=== PATIENT | male | born 1980 | race Two or more races ===

== ENCOUNTER 2017-10-15 10:41 | Inpatient (IN) | payer OTHER ==
--- NOTE | 2017-10-15 11:02 | ED ---
General Adult HPI - General Chief complaint: Shortness of Breath Stated complaint: collapsed lung-sent by Dr. Bueno Time Seen by Provider: 10/15/17 10:50 Source: patient, RN notes reviewed, old records reviewed Mode of arrival: ambulatory Limitations: no limitations - History of Present Illness Initial comments: 37-year-old male sent from the pond scaler's office with right-sided pneumothorax. Patient is accompanied by his mother who is able to help with the history as Thai is not the patient's first language. She states that he had an outpatient ultrasound by his primary care physician which showed concern for pneumothorax, there was chest x-ray obtained with primary care physician that did confirm pneumothorax and the patient was sent to [facility] for evaluation. Patient has had some mild intermittent dyspnea over the past several months. No significant shortness of breath at the time my evaluation. No chest pain. No abdominal pain. Patient has a remote history of tobacco use , is currently not smoking. Denies cough. Denies fever. - Related Data Home Medications Medication Instructions Recorded Confirmed Ibuprofen [Advil] 200 mg PO Q8HR PRN 10/15/17 10/15/17 Allergies Allergy/AdvReac Type Severity Reaction Status Date / Time No Known Allergies Allergy Unverified 10/15/17 11:12 Review of Systems ROS Statement: Those systems with pertinent positive or pertinent negative responses have been documented in the HPI. ROS Other: All systems not noted in ROS Statement are negative. Past Medical History Past Medical History: No Reported History History of Any Multi-Drug Resistant Organisms: None Reported Past Surgical History: Orthopedic Surgery Additional Past Surgical History / Comment(s): lt foot Past Psychological History: No Psychological Hx Reported Smoking Status: Former smoker Past Alcohol Use History: Occasional Past Drug Use History: None Reported General Exam Limitations: no limitations General appearance: alert, in no apparent distress Head exam: Present: atraumatic, normocephalic Eye exam: Present: normal appearance, PERRL ENT exam: Present: normal exam, normal oropharynx Neck exam: Present: normal inspection. Absent: tenderness, meningismus Respiratory exam: Present: decreased breath sounds (Decreased breath sounds on the right). Absent: respiratory distress Cardiovascular Exam: Present: regular rate, normal rhythm. Absent: JVD GI/Abdominal exam: Present: soft. Absent: distended, tenderness Extremities exam: Present: normal inspection, normal capillary refill. Absent: pedal edema Back exam: Present: normal inspection, full ROM Neurological exam: Present: alert, oriented X3, CN II-XII intact. Absent: motor sensory deficit Psychiatric exam: Present: normal affect, normal mood Skin exam: Present: warm, dry, intact Course Vital Signs 10/15/17 10/15/17 10:44 11:54 Temperature 98.0 F Pulse Rate 93 69 Respiratory 20 18 Rate Blood Pressure 137/82 128/80 O2 Sat by Pulse 99 100 Oximetry - Reevaluation(s) Reevaluation #1: 10/15/17 11:17 Case discussed with Chiara physician congressional assistant for Dr. Calhoun. EKG Findings - EKG Comments: EKG Findings:: EKG: Normal sinus rhythm, incomplete right bundle branch block, rate of 93, NH interval 160, QRS duration 106, QTC [address] segment elevation Medical Decision Making - Medical Decision Making 37-year-old male sent from pulmonologists office with spontaneous pneumothorax. This is a 30-40% pneumothorax on single view chest which is obtained. Dr. Calhoun is contacted and is able to evaluate patient emergency department including placement of right-sided for event. Patient will be observed. All labs are reviewed and are unremarkable. Dr. Rodney will accept admission - Lab Data Result diagrams: 10/15/17 11:13 10/15/17 11:13 Lab Results 10/15/17 10/15/17 10/15/17 Range/Units 11:13 11:13 11:13 WBC 6.2 (3.8-10.6) k/uL RBC 6.01 H (4.30-5.90) m/uL Hgb 16.5 (13.0-17.5) gm/dL Hct 48.9 (39.0-53.0) % MCV 81.3 (80.0-100.0) fL MCH 27.5 (25.0-35.0) pg MCHC 33.8 (31.0-37.0) g/dL RDW 13.4 (11.5-15.5) % Plt Count 200 (150-450) k/uL Neutrophils % 60 % Lymphocytes % 26 % Monocytes % 8 % Eosinophils % 2 % Basophils % 1 % Neutrophils # 3.7 (1.3-7.7) k/uL Lymphocytes # 1.6 (1.0-4.8) k/uL Monocytes # 0.5 (0-1.0) k/uL Eosinophils # 0.1 (0-0.7) k/uL Basophils # 0.0 (0-0.2) k/uL PT (9.0-12.0) sec INR (<1.2) APTT (22.0-30.0) sec Sodium 145 (137-145) mmol/L Potassium 4.3 (3.5-5.1) mmol/L Chloride 104 (98-107) mmol/L Carbon Dioxide 27 (22-30) mmol/L Anion Gap 14 mmol/L BUN 17 (9-20) mg/dL Creatinine 0.72 (0.66-1.25) mg/dL Est GFR (CKD-EPI)AfAm >90 (>60 ml/min/1.73 sqM) Est GFR (CKD-EPI)NonAf >90 (>60 ml/min/1.73 sqM) Glucose 91 (74-99) mg/dL Calcium 9.4 (8.4-10.2) mg/dL Magnesium 1.9 (1.6-2.3) mg/dL Total Bilirubin 0.7 (0.2-1.3) mg/dL AST 17 (17-59) U/L ALT 38 (21-72) U/L Alkaline Phosphatase 52 (38-126) U/L CK-MB (CK-2) 1.1 (0.0-2.4) ng/mL Troponin I <0.012 (0.000-0.034) ng/mL Total Protein 7.0 (6.3-8.2) g/dL Albumin 4.5 (3.5-5.0) g/dL 10/15/17 Range/Units 11:13 WBC (3.8-10.6) k/uL RBC (4.30-5.90) m/uL Hgb (13.0-17.5) gm/dL Hct (39.0-53.0) % MCV (80.0-100.0) fL MCH (25.0-35.0) pg MCHC (31.0-37.0) g/dL RDW (11.5-15.5) % Plt Count (150-450) k/uL Neutrophils % % Lymphocytes % % Monocytes % % Eosinophils % % Basophils % % Neutrophils # (1.3-7.7) k/uL Lymphocytes # (1.0-4.8) k/uL Monocytes # (0-1.0) k/uL Eosinophils # (0-0.7) k/uL Basophils # (0-0.2) k/uL PT 10.4 (9.0-12.0) sec INR 1.1 (<1.2) APTT 25.8 (22.0-30.0) sec Sodium (137-145) mmol/L Potassium (3.5-5.1) mmol/L Chloride (98-107) mmol/L Carbon Dioxide (22-30) mmol/L Anion Gap mmol/L BUN (9-20) mg/dL Creatinine (0.66-1.25) mg/dL Est GFR (CKD-EPI)AfAm (>60 ml/min/1.73 sqM) Est GFR (CKD-EPI)NonAf (>60 ml/min/1.73 sqM) Glucose (74-99) mg/dL Calcium (8.4-10.2) mg/dL Magnesium (1.6-2.3) mg/dL Total Bilirubin (0.2-1.3) mg/dL AST (17-59) U/L ALT (21-72) U/L Alkaline Phosphatase (38-126) U/L CK-MB (CK-2) (0.0-2.4) ng/mL Troponin I (0.000-0.034) ng/mL Total Protein (6.3-8.2) g/dL Albumin (3.5-5.0) g/dL Critical Care Time Critical Care Time: Yes Total Critical Care Time: 35 Disposition Clinical Impression: Spontaneous pneumothorax Disposition: ADMITTED IP TO THIS HOSP Condition: Stable Is patient prescribed a controlled substance at d/c from ED?: No Referrals: Prakash Aceves MD [Primary Care Provider] - 1-2 days Decision to Admit Reason: Admit from EC Decision Date: 10/15/17 Decision Time: 12:34
--- NOTE | 2017-10-15 11:40 | XR ---
EXAMINATION TYPE: XR chest 1V portable DATE OF EXAM: 10/15/2017 COMPARISON: NONE HISTORY: Chest pain TECHNIQUE: Single frontal view of the chest is obtained. FINDINGS: Large right-sided pneumothorax estimated at approximately 40-50%. The cardiac silhouette size is within normal limits. No evidence for mediastinal shift at this time . The osseous structures are intact. IMPRESSION: 1. Large right-sided pneumothorax estimated at approximately 40-50%. ER was notified at 11:36 AM 10/15/2017
[2017-10-15 11:46] LABS: Basophils % (A) 1 %; Eosinophils # (A) 0.1 k/uL (0-0.7); Eosinophils % (A) 2 %; HCT 48.9 % (39.0-53.0); HGB 16.5 gm/dL (13.0-17.5); Lymphocytes # (A) 1.6 k/uL (1.0-4.8); Lymphocytes % (A) 26 %; MCH 27.5 pg (25.0-35.0); MCHC 33.8 g/dL (31.0-37.0); MCV 81.3 fL (80.0-100.0); Mean Platelet Volume 7.2; Monocytes # (A) 0.5 k/uL (0-1.0); Monocytes % (A) 8 %; Neutrophils # (A) 3.7 k/uL (1.3-7.7); Neutrophils % (A) 60 %; Platelet Count 200 k/uL (150-450); RBC 6.01 m/uL (4.30-5.90); RDW 13.4 % (11.5-15.5); WBC 6.2 k/uL (3.8-10.6)
--- NOTE | 2017-10-15 11:46 | P.CNPUL ---
History of Present Illness Consult date: 10/15/17 Reason for consult: pneumothorax History of present illness: A 37-year-old male patient, a ex-smoker, who was referred from our office for a right-sided pneumothorax. The patient was having shortness of breath for a few weeks. He was also having some vague abdominal pain. The patient was referred for an ultrasound of the abdomen, on and off and as part of further investigation ultrasound of the abdomen was done which revealed no specific abnormalities. At the same time the ultrasound and his lower part of the right chest revealed a pneumothorax. This was followed up by a chest x-ray that showed a 30-40% pneumothorax on the right. The patient is hemodynamically stable. The patient is currently resting comfortably in the emergency department. No trauma to the chest. No hemoptysis. No pleurisy. Pulse ox is 95-96% on 2 L of oxygen by nasal cannula. Labs are within normal limits. Review of Systems Constitutional: Denies chills, Denies fever Eyes: denies blurred vision, denies bulging eye, denies decreased vision Ears: deny: decreased hearing, ear discharge, earache, tinnitus Ears, nose, mouth and throat: Denies headache, Denies sore throat Cardiovascular: Denies chest pain, Denies shortness of breath Respiratory: Reports dyspnea Gastrointestinal: Denies abdominal pain, Denies diarrhea, Denies nausea, Denies vomiting Genitourinary: Reports as per HPI Musculoskeletal: Denies myalgias Musculoskeletal: absent: ankle pain, ankle stiffness, ankle swelling Integumentary: Denies pruritus, Denies rash Neurological: Denies numbness, Denies weakness Psychiatric: Denies anxiety, Denies depression Endocrine: Reports as per HPI Hematologic/Lymphatic: Reports as per HPI Past Medical History Past Medical History: No Reported History Additional Past Medical History / Comment(s): Neurofibromatosis, history of hemangioma, chronic neck pain, history of smoking History of Any Multi-Drug Resistant Organisms: None Reported Past Surgical History: Orthopedic Surgery Additional Past Surgical History / Comment(s): lt foot Past Psychological History: No Psychological Hx Reported Smoking Status: Former smoker Past Alcohol Use History: Occasional Past Drug Use History: None Reported Medications and Allergies Home Medications Medication Instructions Recorded Confirmed Type Ibuprofen [Advil] 200 mg PO Q8HR PRN 10/15/17 10/15/17 History Allergies Allergy/AdvReac Type Severity Reaction Status Date / Time No Known Allergies Allergy Unverified 10/15/17 11:12 Physical Exam Vitals: Vital Signs Temp Pulse Resp BP Pulse Ox 10/15/17 10:44 98.0 F 93 20 137/82 99 Intake and Output 10/14/17 10/15/17 10/15/17 22:59 06:59 14:59 Other: Weight 77.111 kg Gen. appearance, comfortable likely distress Head exam was generally normal. There was no scleral icterus or corneal arcus. Mucous membranes were moist. Neck was supple and without jugular venous distension, thyromegaly, or carotid bruits. Carotids were easily palpable bilaterally. There was no adenopathy. Lungs sounds are markedly diminished on the right compared to the left Cardiac exam revealed the PMI to be normally situated and sized. The rhythm was regular and no extrasystoles were noted during several minutes of auscultation. The first and second heart sounds were normal and physiologic splitting of the second heart sound was noted. There were no murmurs, rubs, clicks, or gallops. Abdomen abdomen Abdominal exam revealed normal bowel sounds. The abdomen was soft, non-tender, and without masses, organomegaly, or appreciable enlargement of the abdominal aorta. Examination of the extremities revealed easily palpable radial, femoral and pedal pulses. There was no cyanosis, clubbing or edema. Examination of the skin revealed no evidence of significant rashes, suspicious appearing nevi or other concerning lesions. Neurologically the patient is awake and alert and there is no focal neurological deficits Results - Diagnostic Findings Chest x-ray: image reviewed Assessment and Plan Plan: Assessment 1 primary spontaneous pneumothorax, right-sided [place] estimated to be around 40-50% 2 shortness of breath secondary to above 3 neurofibromatosis 4 history of smoking Plan Would proceed with a Thoravent insertion on the right. We'll admit the patient to the hospital and obtain follow-up chest x-rays. We'll continue to follow. We'll check alpha-1 antitrypsin levels. May need a CAT scan of the chest later stage special with his previous history of neurofibromatosis.
[2017-10-15 11:58] LABS: ALT 38 U/L (21-72); AST 17 U/L (17-59); Albumin 4.5 g/dL (3.5-5.0); Alkaline Phosphatase 52 U/L (38-126); Anion Gap 14 mmol/L; Blood Urea Nitrogen 17 mg/dL (9-20); Calcium 9.4 mg/dL (8.4-10.2); Carbon Dioxide 27 mmol/L (22-30); Chloride 104 mmol/L (98-107); Glucose 91 mg/dL (74-99); Magnesium 1.9 mg/dL (1.6-2.3); Potassium 4.3 mmol/L (3.5-5.1); Sodium 145 mmol/L (137-145); Total Bilirubin 0.7 mg/dL (0.2-1.3)
[2017-10-15 12:03] LABS: INR 1.1 (<1.2); Partial Thromboplastin Time 25.8 sec (22.0-30.0); Prothrombin Time 10.4 sec (9.0-12.0)
--- NOTE | 2017-10-15 12:06 | P.PCN ---
Date of Procedure: 10/15/17 Preoperative Diagnosis: Right sided pneumothorax Postoperative Diagnosis: Right-sided pneumothorax Procedure(s) Performed: Thoravent insertion Anesthesia: local Surgeon: Alicia Calhoun Occupational Therapy Assistant #1: Chiara Srinivasan Estimated Blood Loss (ml): 0 Pathology: none sent Condition: stable Disposition: floor Operative Findings: The procedure including the potential complicated was extended to the patient at length. A timeout was obtained. Consent was signed. The skin was infiltrated with 1% lidocaine at location of the anterior second intercostal space. The skin was incised with a scalpel. Following that a 13-Eth[place]ian Thoravent catheter was secured in place and it was inserted without any difficulties or complications. The right-sided pneumothorax was deflated. The appropriate dressing was applied. The vent was connected to a Pleur-evac. A chest x-ray showed adequate positioning of the tube and there were no complications. The right lung is expanded. The patient will be admitted to the medical floor.
[2017-10-15 12:23] LABS: Creatine Kinase MB 1.1 ng/mL (0.0-2.4); Troponin I <0.012 ng/mL (0.000-0.034)
--- NOTE | 2017-10-15 12:28 | XR ---
EXAMINATION TYPE: XR chest 1V portable DATE OF EXAM: 10/15/2017 COMPARISON: 10/06/2017 HISTORY: Chest pain TECHNIQUE: Single frontal view of the chest is obtained. FINDINGS: Interval placement of right-sided pleural catheter. There is a small residual right apical pneumothor ax. The cardiac silhouette size is within normal limits. The osseous structures are intact. IMPRESSION: 1. Significant diminution in size of right-sided pneumothorax. Small less than 10% right apical pneum othorax persists. Right-sided pleural catheter has been placed.
[2017-10-15] MEDS ORDERED: NALOXONE 0.4 MG/ML 1 ML VIAL IV PRN (12:31)
[2017-10-15 12:49] LABS: Creatine Kinase 84 U/L (55-170)
[2017-10-15] MEDS ORDERED: ACETAMINOPHEN TAB 325 MG TAB PO PRN (19:18)
[2017-10-15] MEDS ORDERED: MELATONIN 3 MG TABLET PO PRN (19:18)
[2017-10-15] MEDS ORDERED: ONDANSETRON 4 MG/2 ML VIAL IVP PRN (19:18)
[2017-10-15] MEDS ORDERED: ALPRAZolam 0.25 MG TAB PO PRN (19:18)
[2017-10-15] MEDS ORDERED: CALCIUM CARBONATE 500 MG CHEWABLE PO PRN (19:18)
[2017-10-15] MEDS: NAPROXEN 250 MG TAB PO SCH ×2 (21:02→21:49)
[2017-10-15] MEDS: ENOXAPARIN 40 MG/0.4 ML SYRINGE SQ SCH (21:03)
--- NOTE | 2017-10-15 21:27 | HP ---
HISTORY AND PHYSICAL DATE OF ADMISSION AND DATE OF SERVICE: 10/15/2017 PRESENTING COMPLAINT: Short of breath. HISTORY OF PRESENTING COMPLAINT: This is a 37-year-old patient from [place], was difficult to understand very well, but states he had been short of breath for some time and he went to get an ultrasound of the abdomen because some abdominal symptoms, nonspecific, and that showed up showing a pneumothorax and a chest x-ray was done, showed about 30%-40% pneumothorax. Thora- Vent was placed by Dr. Calhoun. Breathing feels a bit better. No cough. No sputum. Patient is an ex-smoker, stopped smoking 9 months ago. Denies any fever or chills. Appetite is fair. Denies any other medical history. REVIEW OF SYSTEMS: CONSTITUTIONAL: None. HEENT: None. RESPIRATORY: As above. CARDIOVASCULAR: None. GASTROINTESTINAL: None. GENITOURINARY: None. MUSCULOSKELETAL: None. DERMATOLOGICAL: None. HEMATOLOGIC: None. LYMPHATIC: None. PSYCHIATRY: None. NEUROLOGICAL: None. PAST MEDICAL HISTORY: None. 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 SOCIAL HISTORY: Lives at his [id number] place. Did stop smoking about 9 years ago. Alcohol occasionally. Smoked for about 18 years. FAMILY HISTORY: Father had stomach bleeding. HOME MEDICATIONS: Advil p.r.n. 200 mg. ALLERGIES: None. EXAMINATION: Temperature 97, pulse 67, respirations 16, blood pressure 132/82, pulse ox 100% on room air. GENERAL APPEARANCE: Average build, lying in bed, awake. EYES: Pupils equal. Conjunctivae normal. HEENT: External nose and ears normal. Oral cavity normal. NECK: JVD not raised. Mass not palpable. RESPIRATORY: Effort normal. LUNGS: Slightly decreased breath sounds on the right side. CARDIOVASCULAR: First and second sounds normal. No edema. ABDOMEN: Soft, nontender. Liver and spleen not palpable. LYMPHATIC: No lymph node palpable in neck or axillae. PSYCHIATRY: Alert and oriented x3. Mood and affect normal. CHEST WALL: Thora-Vent anteriorly connected to a suction. MUSCULOSKELETAL: The patient has a healing scar on the left leg. INVESTIGATION: Initial chest x-ray did show 30%-40% pneumothorax. White count 6.2, hemoglobin 16.5. ASSESSMENT: 1. Spontaneous pneumothorax 30%-40%, symptomatic in an ex-smoker. 2. Placement of Thora-Vent. PLAN: The patient will be given NSAIDs for pain control, Lovenox for DVT prophylaxis. Care was discussed with the patient. Dr. Calhoun from pulmonary did put Thora-Vent in place. JORJE / RAIZAN: [id number] /
[2017-10-16] MEDS: NAPROXEN 250 MG TAB PO SCH ×3 (08:29→20:51)
[2017-10-16] MEDS: ENOXAPARIN 40 MG/0.4 ML SYRINGE SQ SCH (08:31)
--- NOTE | 2017-10-16 10:21 | XR ---
EXAMINATION TYPE: XR chest 1V DATE OF EXAM: 10/16/2017 COMPARISON: 10/15/2017 INDICATION: Pneumothorax TECHNIQUE: Single frontal view of the chest is obtained. FINDINGS: The heart size is normal. The pulmonary vasculature is normal. The lungs are clear. Small right apical pneumothorax estimated at 5% may remain present. This is diminished with some expa nsion from the prior study. IMPRESSION: 1. Diminishing right apical pneumothorax
--- NOTE | 2017-10-16 13:44 | P.PN ---
Subjective Progress Note Date: 10/16/17 Principal diagnosis: Right-sided primary spontaneous pneumothorax of 40-50%, status post thora-vent insertion A 37-year-old male patient, a ex-smoker, who was referred from our office for a right-sided pneumothorax. The patient was having shortness of breath for a few weeks. He was also having some vague abdominal pain. The patient was referred for an ultrasound of the abdomen, on and off and as part of further investigation ultrasound of the abdomen was done which revealed no specific abnormalities. At the same time the ultrasound and his lower part of the right chest revealed a pneumothorax. This was followed up by a chest x-ray that showed a 30-40% pneumothorax on the right. The patient is hemodynamically stable. The patient is currently resting comfortably in the emergency department. No trauma to the chest. No hemoptysis. No pleurisy. Pulse ox is 95-96% on 2 L of oxygen by nasal cannula. Labs are within normal limits. On 10/16/2017 patient seen in follow-up. This morning's chest x-ray has been reviewed with Dr. Calhoun and shows diminishing right apical pneumothorax, with residual small right apical pneumo estimated at 5%. Right-sided Thora- Vent has been hooked up to a Pleur-evac at continuous low wall suction, and there is no air leak noted today. The Pleur-evac has been disconnected, and the cap been applied to the Thora vent, repeat chest x-ray will be obtained tomorrow. Otherwise patient is calm and comfortable, denies any distress, patient can't get up and ambulate, will provide him with an incentive spirometry ,I'll signs are stable, lung sounds are clear, and somewhat diminished on the right, there is no entry noted. Objective - Vital Signs Vital signs: Vital Signs Temp 97.2 F L 10/16/17 05:52 Pulse 63 10/16/17 05:52 Resp 18 10/16/17 05:52 BP 112/70 10/16/17 05:52 Pulse Ox 100 10/16/17 05:52 Intake & Output 10/15/17 10/16/17 10/16/17 18:59 06:59 18:59 Intake Total 350 Balance 350 Weight 77.111 kg 77.111 kg Intake: Oral 350 Other: # Voids 1 - Exam Gen. appearance, comfortable likely distress Head exam was generally normal. There was no scleral icterus or corneal arcus. Mucous membranes were moist. Neck was supple and without jugular venous distension, thyromegaly, or carotid bruits. Carotids were easily palpable bilaterally. There was no adenopathy. Lungs sounds are markedly diminished on the right compared to the left, increased air in entry noted on the right compared to yesterday's exam. Right upper chest for a thoravent is present, and is connected to a Pleur-evac at a low continuous wall suction. The Pleur-evac has been discontinued, and the Thoravent has been capped, creating a water seal Cardiac exam revealed the PMI to be normally situated and sized. The rhythm was regular and no extrasystoles were noted during several minutes of auscultation. The first and second heart sounds were normal and physiologic splitting of the second heart sound was noted. There were no murmurs, rubs, clicks, or gallops. Abdomen abdomen Abdominal exam revealed normal bowel sounds. The abdomen was soft, non-tender, and without masses, organomegaly, or appreciable enlargement of the abdominal aorta. Examination of the extremities revealed easily palpable radial, femoral and pedal pulses. There was no cyanosis, clubbing or edema. Examination of the skin revealed no evidence of significant rashes, suspicious appearing nevi or other concerning lesions. Neurologically the patient is awake and alert and there is no focal neurological deficits - Labs CBC & Chem 7: 10/15/17 11:13 10/15/17 11:13 Assessment and Plan Plan: Assessment: 1 primary spontaneous pneumothorax, right-sided [place] estimated to be around 40-50% , status post right Thoravent insertion, with successful reexpansion of the right lung with only residual apical pneumothorax of around 50% on today's chest x-ray on 10/16/2017 2 shortness of breath secondary to above 3 neurofibromatosis 4 history of smoking Plan: Pleural VAC and wall suction has been discontinued, chest x-ray shows diminishing pneumothorax, of around 5% residual in the right apex. The thoravent has been capped, and it is to water seal at this time. Patient can get up and ambulate, incentive spirometry to the bedside, encourage pulmonary toileting, will repeat chest x-ray tomorrow. I performed a history & physical examination of the patient and discussed their management with my nurse practitioner, Shanita Lu. I reviewed the nurse practitioner's note and agree with the documented findings and plan of care. Lung sounds are positive for clear lung sounds, slightly diminished on the right. The findings and the impression was discussed with the patient. I attest to the documentation by the nurse practitioner. Time with Patient: Less than 30
[2017-10-16] MEDS: CHOLECALCIFEROL 1,000 UNIT TAB PO SCH (14:11)
--- NOTE | 2017-10-17 05:25 | PN ---
PROGRESS NOTE DATE OF SERVICE: 10/16/2017 PRESENTING COMPLAINT: Pneumothorax. INTERVAL HISTORY: Patient with spontaneous pneumothorax on the right side with a Thora-Vent in place, has been capped off. Patient now , breathing stable. Tolerating a diet. REVIEW OF SYSTEMS: Review of systems done for constitutional, cardiovascular, GI, pulmonary; relevant findings as above. CURRENT MEDICATIONS: Current medications are reviewed. PHYSICAL EXAMINATION: On examination, temperature 97.3, pulse 76, respirations 17, blood pressure 118/67, pulse ox 99% on 2 L. GENERAL APPEARANCE: Sitting up, comfortable, EYES: Pupil equal. Conjunctivae normal. HENT: External appearance of the nose and ears normal. Oral cavity normal. NECK: JVD not raised. Mass not palpable. RESPIRATORY: Effort normal. LUNGS: Slightly decreased breath sounds. CARDIOVASCULAR: First and second normal. No edema. ABDOMEN: Soft, nontender. Liver and spleen not palpable. PSYCHIATRY: Alert and oriented x3. Mood and affect normal. Right chest wall has got a Thora-Vent in place, now capped off. INVESTIGATIONS: No blood work from today. Chest x-ray shows only 5% remaining pneumothorax. ASSESSMENT: 1. Spontaneous pneumothorax down from 30% to 40% down to 5%. 2. Thora-Vent in place. PLAN: Patient doing much better, up and about. If chest x-ray remains stable, should be able to get discharged. MMODL / IJN: [id number] /
[2017-10-17 06:21] VITALS: PULSE 76; RESP 16
--- NOTE | 2017-10-17 06:29 | XR ---
EXAM: XR Chest, 1 View CLINICAL HISTORY: Prior on synapse, increased pain post thoravent placement for pneumothorax TECHNIQUE: Frontal view of the chest. COMPARISON: 10/15/2017 FINDINGS: Lungs: Lungs are clear. Pleural space: Likely very small residual apical pneumothorax noted, decreasing in size. Heart: Cardiac silhouette size is normal. Mediastinum: Unremarkable. Bones/joints: Unremarkable. Tubes, lines and devices: Right-sided pleural catheter is again noted. IMPRESSION: 1. Decreasing size of the right pneumothorax, with likely small residual apical component.
[2017-10-17] MEDS: NAPROXEN 250 MG TAB PO SCH ×2 (08:35→16:13)
[2017-10-17] MEDS: ENOXAPARIN 40 MG/0.4 ML SYRINGE SQ SCH (08:36)
[2017-10-17] MEDS: CHOLECALCIFEROL 1,000 UNIT TAB PO SCH (11:46)
--- NOTE | 2017-10-17 13:25 | P.PN ---
Subjective Progress Note Date: 10/17/17 Principal diagnosis: Right-sided primary spontaneous pneumothorax of 40-50%, status post thora-vent insertion A 37-year-old male patient, a ex-smoker, who was referred from our office for a right-sided pneumothorax. The patient was having shortness of breath for a few weeks. He was also having some vague abdominal pain. The patient was referred for an ultrasound of the abdomen, on and off and as part of further investigation ultrasound of the abdomen was done which revealed no specific abnormalities. At the same time the ultrasound and his lower part of the right chest revealed a pneumothorax. This was followed up by a chest x-ray that showed a 30-40% pneumothorax on the right. The patient is hemodynamically stable. The patient is currently resting comfortably in the emergency department. No trauma to the chest. No hemoptysis. No pleurisy. Pulse ox is 95-96% on 2 L of oxygen by nasal cannula. Labs are within normal limits. On 10/16/2017 patient seen in follow-up. This morning's chest x-ray has been reviewed with Dr. Calhoun and shows diminishing right apical pneumothorax, with residual small right apical pneumo estimated at 5%. Right-sided Thora- Vent has been hooked up to a Pleur-evac at continuous low wall suction, and there is no air leak noted today. The Pleur-evac has been disconnected, and the cap been applied to the Thora vent, repeat chest x-ray will be obtained tomorrow. Otherwise patient is calm and comfortable, denies any distress, patient can't get up and ambulate, will provide him with an incentive spirometry ,I'll signs are stable, lung sounds are clear, and somewhat diminished on the right, there is no entry noted. On 10/17/2017 patient seen in follow-up. Today's chest x-ray was reviewed, shows decreasing size of the right pneumothorax, would likely small residual apical component. Right upper chest Thora vent is in place. Patient has been experiencing some right upper chest discomfort radiating down the right arm, describes it as mild, 3 out of 10, has been managed with oral Tylenol, patient states it is sufficient pain relief for now. He has been ambulating, denies any acute dyspnea, he is compliant with his incentive spirometry. Lung sounds are clear. Objective - Vital Signs Vital signs: Vital Signs Temp 97.0 F L 10/17/17 06:21 Pulse 76 10/17/17 06:21 Resp 16 10/17/17 06:21 BP 119/63 10/17/17 06:21 Pulse Ox 99 10/17/17 06:21 Intake & Output 10/16/17 10/17/17 10/17/17 18:59 06:59 18:59 Intake Total 200 600 Balance 200 600 Weight 77.111 kg 77.111 kg Intake: Oral 200 600 Other: # Voids 2 1 # Bowel Movements 0 - Exam Gen. appearance, comfortable likely distress Head exam was generally normal. There was no scleral icterus or corneal arcus. Mucous membranes were moist. Neck was supple and without jugular venous distension, thyromegaly, or carotid bruits. Carotids were easily palpable bilaterally. There was no adenopathy. Lungs sounds are clear, good air entry noted bilaterally. Right upper chest for a thoravent is present, and is connected to a Pleur-evac at a low continuous wall suction. The Pleur-evac has been discontinued, and the Thoravent has been capped, creating a water seal Cardiac exam revealed the PMI to be normally situated and sized. The rhythm was regular and no extrasystoles were noted during several minutes of auscultation. The first and second heart sounds were normal and physiologic splitting of the second heart sound was noted. There were no murmurs, rubs, clicks, or gallops. Abdomen abdomen Abdominal exam revealed normal bowel sounds. The abdomen was soft, non-tender, and without masses, organomegaly, or appreciable enlargement of the abdominal aorta. Examination of the extremities revealed easily palpable radial, femoral and pedal pulses. There was no cyanosis, clubbing or edema. Examination of the skin revealed no evidence of significant rashes, suspicious appearing nevi or other concerning lesions. 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 Possible discharge home today, if remains stable continue encouraging incentive spirometry, ambulation. I performed a history & physical examination of the patient and discussed their management with my nurse practitioner, Shanita Lu. I reviewed the nurse practitioner's note and agree with the documented findings and plan of care. Lung sounds are positive for clear lung sounds, slightly diminished on the right. The findings and the impression was discussed with the patient. I attest to the documentation by the nurse practitioner. Time with Patient: Less than 30
[2017-10-17 15:53] VITALS: BP 114/70; TEMP 96.8
--- NOTE | 2017-10-17 16:58 | XR ---
EXAMINATION TYPE: XR chest 2V DATE OF EXAM: 10/17/2017 COMPARISON: 10/17/2017 0330 hours INDICATION: Difficulty in breathing TECHNIQUE: Frontal and lateral views of the chest are obtained. FINDINGS: The heart size is normal. The pulmonary vasculature is normal. The lungs are clear. IMPRESSION: 1. No acute pulmonary process.
--- NOTE | 2017-10-17 18:41 | DS ---
DISCHARGE SUMMARY DATE OF ADMISSION: 10/15/2017. DATE OF DISCHARGE: 10/17/2017 FINAL DIAGNOSES: 1. Right-sided spontaneous pneumothorax, about 40%, in an ex-smoker. 2. Thora-Vent in place. 3. Right chest wall musculoskeletal pain. HOSPITAL COURSE: This is a patient who had a right-sided spontaneous pneumothorax in an ex-smoker, had a Thora-Vent placed, doing much better today. It is it has been capped off. Care was discussed with him and his mother. The patient is due to see Dr. Bueno on Saturday. Patient can go back to work on Saturday. EXAM: LUNGS: Fair air entry. CARDIOVASCULAR: First and second sounds normal. FOLLOWUP: With Dr. Aceves in 1 week. Follow up with Dr. Bueno on 10/21/2017. The patient to return to work next Saturday after seen by Dr. Bueno. MMODL / IJN: [id number] /
== END 2017-10-17 17:36 | disposition home or self-care (01) | DRG 201 ==
LOC: EC 10:41 → 5MS5E 12:31 → 4MS4W 13:09
PROVIDERS: ADMIT Hospitalist; ATTEND Hospitalist
PROC: 0B9N30Z Drainage of Right Pleura with Drainage Device, Percutaneous Approach (ICD-10-PCS; principal; 2017-10-15)
DX: J93.11 Primary spontaneous pneumothorax (principal); Q85.00 Neurofibromatosis, unspecified; Z87.891 Personal history of nicotine dependence; Z79.1 Long term (current) use of non-steroidal anti-inflammatories (NSAID)
CPT/HCPCS: 32551; 36415; 71045; 71046; 80053; 82550; 82553; 83735; 84484; 85025; 85610; 85730; 93005; 99291

== ENCOUNTER 2017-10-24 09:52 | Emergency (ER) | payer OTHER ==
[2017-10-24 10:15] VITALS: TEMP 98
[2017-10-24] MEDS ORDERED: KETOROLAC 60 MG/2 ML VIAL IM STA (10:30)
--- NOTE | 2017-10-24 10:33 | ED ---
Extremity Problem HPI - General Chief complaint: Extremity Problem,Nontraumatic Stated complaint: Arm pain Time Seen by Provider: 10/24/17 10:17 Source: patient Mode of arrival: ambulatory Limitations: no limitations - History of Present Illness Initial comments: This is a 37-year-old male with a history of spontaneous pneumothorax who presents emergency department for right-sided arm pain and anterior chest wall pain. He states that he was recently hospitalized for a pneumothorax. He had a sore event placed in the right anterior chest wall. He states that since that time he's been having significant amount of pain in the right anterior chest with radiation down to the right bicep. He states that it seems to be worse with movement of his arm and palpation over the area where the chest tube was inserted. He's been on Hope, Tylenol, and gabapentin without any significant relief. He states that the pain is so severe that he cannot sleep at nighttime. He denies any weakness in the arm. No numbness or tingling. He states that he went and saw his primary doctor yesterday who did a chest x-ray, shoulder x-ray, and elbow x-ray all which were reportedly unremarkable. He was sent home with the above-mentioned medications however they do not seem to be helping so he came to the emergency department. He denies any significant shortness of breath. No pleuritic component to his chest pain. Denies any significant neck discomfort. No other acute complaints. - Related Data Home Medications Medication Instructions Recorded Confirmed Acetaminophen [Tylenol 8 Hour] 650 mg PO TID PRN 10/24/17 10/24/17 Gabapentin [Neurontin] 300 mg PO TID PRN 10/24/17 10/24/17 Previous Rx's Medication Instructions Recorded Naproxen 500 mg PO BID #30 tablet 10/24/17 Allergies Allergy/AdvReac Type Severity Reaction Status Date / Time No Known Allergies Allergy Verified 10/24/17 10:43 Review of Systems ROS Statement: Those systems with pertinent positive or pertinent negative responses have been documented in the HPI. ROS Other: All systems not noted in ROS Statement are negative. Past Medical History Past Medical History: No Reported History Additional Past Medical History / Comment(s): Chronic neck pain. Past medical history noted meurofibromatosis/hemangioma but pt states he has no knowledge of this. History of Any Multi-Drug Resistant Organisms: None Reported Past Surgical History: Orthopedic Surgery Additional Past Surgical History / Comment(s): 10/15/17 Thoravent placed, lt foot surgery d/t abnormality. Past Anesthesia/Blood Transfusion Reactions: No Reported Reaction Past Psychological History: No Psychological Hx Reported Smoking Status: Former smoker Past Alcohol Use History: Occasional Past Drug Use History: None Reported - Past Family History Father Family Medical History: GI Bleed Additional Family Medical History / Comment(s): Father had stomach bleeding. He is but pt does not know cause of . Mother Family Medical History: Cancer Additional Family Medical History / Comment(s): Mother had stomach cancer and is . General Exam - General Exam Comments Initial Comments: Constitutional: Awake alert Appears comfortable Head: Normocephalic atraumatic Eyes: no conjunctival injection No scleral icterus EOMI Neck: No JVD Supple Heart: Regular rate rhythm normal S1-S2 no murmurs Lungs: Clear to auscultation bilaterally No wheezing No rales, tenderness to palpation over the right upper anterior chest wall. There is a small area of swelling over this area however no redness, fluctuance, or induration. There is a healing wound from the chest tube Abdomen: Soft nondistended nontender Extremities: Non edematous DP pulses intact Radial pulses intact, patient has 5 out of 5 strength in upper and lower extremities bilaterally, 2 out of 4 biceps reflexes bilaterally, sensation intact to light touch, no tenderness over the biceps or shoulder joint Neuro: A&Ox3 No focal neurologic deficits Psych: Appropriate mood and affect Limitations: no limitations Course Vital Signs 10/24/17 10:11 Temperature 98 F Pulse Rate 81 Respiratory 16 Rate Blood Pressure 115/60 O2 Sat by Pulse 99 Oximetry Medical Decision Making - Medical Decision Making This is a 37-year-old male who presents emergency department for persistent right-sided chest wall pain and right arm pain. The patient had a computed tomography scan that did show a very tiny right-sided pneumothorax less than 5% . Nothing amenable to chest tube placement. The patient is not hypoxic at all. He also was found to have a for similar lesion in his right subscapularis muscle. Unclear if this is the etiology of his pain. I did speak with Dr. Randhawa who is his doctor about these findings and he stated that he was okay with the patient following up with him in his office. The patient will be started on Naprosyn in addition to the Hope and gabapentin that he is taking. Told to follow up make a close follow-up appointment Dr. Randhawa. Paining worsens or changes he should return emergency Department. All cautions were answered. Disposition Clinical Impression: Lesion of skeletal muscle, Pneumothorax Disposition: HOME SELF-CARE Condition: Stable Instructions: Spontaneous Pneumothorax (ED) Prescriptions: Naproxen 500 mg PO BID #30 tablet Is patient prescribed a controlled substance at d/c from ED?: No Referrals: Prakash Aceves MD [Primary Care Provider] - 1-2 days
--- NOTE | 2017-10-24 11:21 | CT ---
EXAMINATION TYPE: CT chest wo con DATE OF EXAM: 10/24/2017 COMPARISON: NONE HISTORY: Right sided chest pain and shortness of breath with radiating right arm pain CT DLP: 314.[address] of the chest was performed with lung and mediastinal window settings submitted. The la ck of contrast limits evaluation of the vascular, mediastinal and parenchymal structures including th e upper abdomen. LUNGS: Tiny less than 5% right-sided pneumothorax identified. Small area of focal density right apica l region. The remainder of the lungs are clear. MEDIASTINUM/MURPHY: Thoracic aorta is of normal caliber with limited evaluation given lack of contrast . The heart is not enlarged. No evidence for mediastinal mass. No lymph nodes greater than 1cm. UPPER ABDOMEN: No significant abnormality is seen. OTHER: Hypodense lesion subscapularis region measuring 3.9 x 2.8 cm. IMPRESSION: 1. Tiny less than 5% right-sided pneumothorax identified. Small area of focal density right apical r egion.
[2017-10-24 11:55] VITALS: BP 130/81; PULSE 75; RESP 18
== END 2017-10-24 11:55 | disposition home or self-care (01) ==
LOC: EC 09:52
DX: J93.9 Pneumothorax, unspecified (principal); M62.89 Other specified disorders of muscle; Z87.891 Personal history of nicotine dependence
CPT/HCPCS: 71250; 99283; 96372; J1885

== ENCOUNTER 2018-04-01 12:10 | Inpatient (IN) | payer OTHER ==
--- NOTE | 2018-04-01 12:33 | ED ---
General Adult HPI - General Chief complaint: Shortness of Breath Stated complaint: collapsed lung Time Seen by Provider: 04/01/18 12:10 Source: patient, RN notes reviewed Mode of arrival: ambulatory Limitations: no limitations - History of Present Illness Initial comments: This is a 37-year-old male who presents emergency Department with a past medical history significant for pneumothorax. Patient states last couple days he's had a little bit of right-sided chest discomfort and some shortness of breath per patient states the same thing he had when he had his previous pneumothorax. He states with his primary medical care doctor they took an x- ray and told him he had a pneumothorax. Patient denies any recent fever chills or cough. Patient denies any chest pain anteriorly. Patient denies abdominal pain patient denies nausea vomiting diarrhea. She states they have not determine why he had a pneumothorax the first time. Patient denies any injury or trauma. - Related Data Home Medications Medication Instructions Recorded Confirmed Cholecalciferol [Vitamin D3] 1,000 unit PO DAILY 04/01/18 04/01/18 Cyanocobalamin (Vitamin B-12) 1,000 mcg PO DAILY 04/01/18 04/01/18 [Vitamin B-12] Ibuprofen [Advil] 200 - 400 mg PO Q8HR PRN 04/01/18 04/01/18 Loratadine [Claritin] 10 mg PO DAILY 04/01/18 04/01/18 Allergies Allergy/AdvReac Type Severity Reaction Status Date / Time No Known Allergies Allergy Verified 04/01/18 12:30 Review of Systems ROS Statement: Those systems with pertinent positive or pertinent negative responses have been documented in the HPI. ROS Other: All systems not noted in ROS Statement are negative. Past Medical History Past Medical History: No Reported History Additional Past Medical History / Comment(s): Chronic neck pain. Past medical history noted meurofibromatosis/hemangioma but pt states he has no knowledge of this. Pneumothorax History of Any Multi-Drug Resistant Organisms: None Reported Past Surgical History: Orthopedic Surgery Additional Past Surgical History / Comment(s): 10/15/17 Thoravent placed, lt foot surgery d/t abnormality. Past Anesthesia/Blood Transfusion Reactions: No Reported Reaction Past Psychological History: No Psychological Hx Reported Smoking Status: Former smoker Past Alcohol Use History: Occasional Past Drug Use History: None Reported - Past Family History Father Family Medical History: GI Bleed Additional Family Medical History / Comment(s): Father had stomach bleeding. He is but pt does not know cause of . Mother Family Medical History: Cancer Additional Family Medical History / Comment(s): Mother had stomach cancer and is . General Exam - General Exam Comments Initial Comments: GENERAL: Patient is well-developed and well-nourished. Patient is nontoxic and well- hydrated and is in mild distress. ENT: Neck is soft and supple. No significant lymphadenopathy is noted. Oropharynx is clear. Moist mucous membranes. Neck has full range of motion without eliciting any pain. EYES: The sclera were anicteric and conjunctiva were pink and moist. Extraocular movements were intact and pupils were equal round and reactive to light. Eyelids were unremarkable. PULMONARY: Patient's right sided breath sounds are diminished compared to the left. CARDIOVASCULAR: There is a regular rate and rhythm without any murmurs gallops or rubs. ABDOMEN: Soft and nontender with normal bowel sounds. No palpable organomegaly was noted. There is no palpable pulsatile mass. SKIN: Skin is clear with no lesions or rashes and otherwise unremarkable. NEUROLOGIC: Patient is alert and oriented x3. Cranial nerves II through XII are grossly intact. Motor and sensory are also intact. Normal speech, volume and content. Symmetrical smile. MUSCULOSKELETAL: Normal extremities with adequate strength and full range of motion. No lower extremity swelling or edema. No calf tenderness. LYMPHATICS: No significant lymphadenopathy is noted PSYCHIATRIC: Normal psychiatric evaluation. Limitations: no limitations Course Vital Signs 04/01/18 04/01/18 04/01/18 12:17 15:13 15:54 Temperature 97.8 F Pulse Rate 84 80 85 Respiratory 20 18 18 Rate Blood Pressure 129/83 138/89 134/86 O2 Sat by Pulse 97 99 100 Oximetry Medical Decision Making - Medical Decision Making EKG shows normal sinus rhythm at 70 bpm ME interval 146 QRS of 114 QT interval 380 QTC is 410. Patient's EKG shows no ST segment elevation or depression or T wave abnormalities are noted. Chest x-ray shows a pneumothorax on the right about 20%. I made 2 attempts at a thoracic vent neither were successful I spoke with Dr. Calhoun he stated he would come in tonight to put a thoracic vent who I spoke with Dr. Ramirez agreed to admit the patient admitted the patient I wrote admitting orders. - Lab Data Result diagrams: 04/01/18 12:55 04/01/18 12:55 Lab Results 04/01/18 04/01/18 Range/Units 12:55 12:55 WBC 5.4 (3.8-10.6) k/uL RBC 5.69 (4.30-5.90) m/uL Hgb 16.1 (13.0-17.5) gm/dL Hct 47.3 (39.0-53.0) % MCV 83.2 (80.0-100.0) fL MCH 28.3 (25.0-35.0) pg MCHC 34.0 (31.0-37.0) g/dL RDW 13.8 (11.5-15.5) % Plt Count 170 (150-450) k/uL Neutrophils % 66 % Lymphocytes % 22 % Monocytes % 7 % Eosinophils % 1 % Basophils % 1 % Neutrophils # 3.6 (1.3-7.7) k/uL Lymphocytes # 1.2 (1.0-4.8) k/uL Monocytes # 0.4 (0-1.0) k/uL Eosinophils # 0.1 (0-0.7) k/uL Basophils # 0.0 (0-0.2) k/uL Sodium 141 (137-145) mmol/L Potassium 4.0 (3.5-5.1) mmol/L Chloride 107 (98-107) mmol/L Carbon Dioxide 26 (22-30) mmol/L Anion Gap 8 mmol/L BUN 25 H (9-20) mg/dL Creatinine 0.79 (0.66-1.25) mg/dL Est GFR (CKD-EPI)AfAm >90 (>60 ml/min/1.73 sqM) Est GFR (CKD-EPI)NonAf >90 (>60 ml/min/1.73 sqM) Glucose 92 (74-99) mg/dL Calcium 9.8 (8.4-10.2) mg/dL Total Bilirubin 0.9 (0.2-1.3) mg/dL AST 22 (17-59) U/L ALT 38 (21-72) U/L Alkaline Phosphatase 42 (38-126) U/L Total Protein 7.7 (6.3-8.2) g/dL Albumin 4.7 (3.5-5.0) g/dL Disposition Clinical Impression: Pneumothorax Disposition: ADMITTED IP TO THIS HOSP Referrals: Prakash Aceves MD [Primary Care Provider] - 1-2 days Time of Disposition: 16:39
[2018-04-01 13:21] LABS: Basophils % (A) 1 %; Eosinophils # (A) 0.1 k/uL (0-0.7); Eosinophils % (A) 1 %; HCT 47.3 % (39.0-53.0); HGB 16.1 gm/dL (13.0-17.5); Lymphocytes # (A) 1.2 k/uL (1.0-4.8); Lymphocytes % (A) 22 %; MCH 28.3 pg (25.0-35.0); MCV 83.2 fL (80.0-100.0); Mean Platelet Volume 6.7; Monocytes # (A) 0.4 k/uL (0-1.0); Monocytes % (A) 7 %; Neutrophils # (A) 3.6 k/uL (1.3-7.7); Neutrophils % (A) 66 %; Platelet Count 170 k/uL (150-450); RBC 5.69 m/uL (4.30-5.90); RDW 13.8 % (11.5-15.5); WBC 5.4 k/uL (3.8-10.6)
[2018-04-01 13:25] LABS: ALT 38 U/L (21-72); AST 22 U/L (17-59); Albumin 4.7 g/dL (3.5-5.0); Alkaline Phosphatase 42 U/L (38-126); Anion Gap 8 mmol/L; Blood Urea Nitrogen 25 mg/dL (9-20); Calcium 9.8 mg/dL (8.4-10.2); Carbon Dioxide 26 mmol/L (22-30); Chloride 107 mmol/L (98-107); Glucose 92 mg/dL (74-99); Sodium 141 mmol/L (137-145); Total Bilirubin 0.9 mg/dL (0.2-1.3); Total Protein 7.7 g/dL (6.3-8.2)
--- NOTE | 2018-04-01 13:29 | XR ---
EXAMINATION TYPE: XR chest 2V DATE OF EXAM: 04/01/2018 COMPARISON: 10/29/2017 TECHNIQUE: PA and lateral views submitted. HISTORY: Difficulty in breathing FINDINGS: There is a pneumothorax on the right measuring approximately 20%. Finding called to ER physician. Lef t lung clear with no definite mediastinal deviation. No pleural effusion or consolidation. IMPRESSION: 1. Approximate 20-25% right-sided pneumothorax.
[2018-04-01] MEDS ORDERED: LIDOCAINE 1% INJ 10MG/ML (20 ML MDV) SQ ONE ×3 (13:48→19:48)
--- NOTE | 2018-04-01 15:05 | XR ---
EXAMINATION TYPE: XR chest 1V portable DATE OF EXAM: 04/01/2018 COMPARISON: 04/01/2018 HISTORY: Pneumothorax TECHNIQUE: Single frontal view of the chest is obtained. FINDINGS: There is a tubing overlying the right chest. Cannot confirm it is within the pleural spac e. Size of the pneumothorax is unchanged. No consolidation or pleural effusion. Heart size stable. IMPRESSION: 1. Stable right-sided 20-25% pneumothorax. Cannot see with certainty the tip of the pleural catheter within the pleural space. Correlate for positioning.
[2018-04-01] MEDS ORDERED: ONDANSETRON 4 MG/2 ML VIAL IVP STA (15:40)
[2018-04-01] MEDS ORDERED: HYDROmorphone 1 MG/ML 1 ML SYRINGE IVP STA (15:40)
[2018-04-01] MEDS ORDERED: LORazepam 2 MG/ML INJ IV STA (15:40)
--- NOTE | 2018-04-01 15:41 | XR ---
EXAMINATION TYPE: XR chest 1V portable DATE OF EXAM: 04/01/2018 COMPARISON: 04/01/2018 HISTORY: Chest tube TECHNIQUE: Single frontal view of the chest is obtained. FINDINGS: Right-sided chest tube is seen overlying the right thorax. There remains a 25% right-sided pneumothorax unchanged in appearance. Left lung clear. Heart size stable. No pleural effusion. IMPRESSION: 1. Chest tube overlying the right hemithorax with a stable appearing 25% right-sided pneumothorax.
[2018-04-01] MEDS ORDERED: SODIUM CHLORIDE 0.9% 1,000 ML IV ONE (16:41)
--- NOTE | 2018-04-01 20:23 | P.CNPUL ---
History of Present Illness Consult date: 04/01/18 Reason for consult: pneumothorax History of present illness: A 37-year-old male patient who came into the emergency department with acute shortness of breath and right-sided chest pain. He was found to have a right- sided pneumothorax. 2 attempts to insert a fluoroscopy vent by emergency room doctor had failed and pulmonary consultation was requested. The patient is known to me. I taking care of him back in September 2017 when he presented with a similar right-sided pneumothorax. At that time, the patient had a 40% pneumothorax on the right and he was hemodynamically stable and had a fluoroscopy vent inserted and the tube was removed subsequently without any complications and the patient was doing well throughout this time without any recurrent event. No trauma to the chest. No hemodynamic instability. No signs of any tension. Review of Systems Constitutional: Denies chills, Denies fever Eyes: denies blurred vision, denies bulging eye, denies decreased vision Ears: deny: decreased hearing, ear discharge, earache, tinnitus Ears, nose, mouth and throat: Denies headache, Denies sore throat Cardiovascular: chest pain, Denies shortness of breath Respiratory: Reports dyspnea and right-sided chest pain Gastrointestinal: Denies abdominal pain, Denies diarrhea, Denies nausea, Denies vomiting Genitourinary: Reports as per HPI Musculoskeletal: Denies myalgias Musculoskeletal: absent: ankle pain, ankle stiffness, ankle swelling Integumentary: Denies pruritus, Denies rash Neurological: Denies numbness, Denies weakness Psychiatric: Denies anxiety, Denies depression Endocrine: Reports as per HPI Hematologic/Lymphatic: Reports as per HPI Past Medical History Past Medical History: No Reported History Additional Past Medical History / Comment(s): : Neurofibromatosis, history of hemangioma, chronic neck pain, history of smoking , previous history of a right- sided pneumothorax back in September 2017 treated with a Thoravent History of Any Multi-Drug Resistant Organisms: None Reported Past Surgical History: Orthopedic Surgery Additional Past Surgical History / Comment(s): 10/15/17 Thoravent placed, lt foot surgery d/t abnormality. Past Anesthesia/Blood Transfusion Reactions: No Reported Reaction Past Psychological History: No Psychological Hx Reported Smoking Status: Former smoker Past Alcohol Use History: Occasional Past Drug Use History: None Reported - Past Family History Father Family Medical History: GI Bleed Additional Family Medical History / Comment(s): Father had stomach bleeding. He is but pt does not know cause of . Mother Family Medical History: Cancer Additional Family Medical History / Comment(s): Mother had stomach cancer and is . Medications and Allergies Home Medications Medication Instructions Recorded Confirmed Type Cholecalciferol [Vitamin D3] 1,000 unit PO DAILY 04/01/18 04/01/18 History Cyanocobalamin (Vitamin B-12) 1,000 mcg PO DAILY 04/01/18 04/01/18 History [Vitamin B-12] Ibuprofen [Advil] 200 - 400 mg PO Q8HR PRN 04/01/18 04/01/18 History Loratadine [Claritin] 10 mg PO DAILY 04/01/18 04/01/18 History Allergies Allergy/AdvReac Type Severity Reaction Status Date / Time No Known Allergies Allergy Verified 04/01/18 12:30 Physical Exam Vitals: Vital Signs Temp Pulse Pulse Resp BP BP Pulse Ox 04/01/18 18:22 97.6 F 84 20 117/68 95 04/01/18 16:42 97.7 F 76 16 122/86 95 04/01/18 15:54 85 18 134/86 100 04/01/18 15:13 80 18 138/89 99 04/01/18 12:17 97.8 F 84 20 129/83 97 Intake and Output 04/01/18 04/01/18 04/01/18 06:59 14:59 22:59 Other: Weight 81.193 kg Gen. appearance, comfortable likely distress Head exam was generally normal. There was no scleral icterus or corneal arcus. Mucous membranes were moist. Neck was supple and without jugular venous distension, thyromegaly, or carotid bruits. Carotids were easily palpable bilaterally. There was no adenopathy. Lungs sounds are markedly diminished on the right compared to the left Cardiac exam revealed the PMI to be normally situated and sized. The rhythm was regular and no extrasystoles were noted during several minutes of auscultation. The first and second heart sounds were normal and physiologic splitting of the second heart sound was noted. There were no murmurs, rubs, clicks, or gallops. Abdomen abdomen Abdominal exam revealed normal bowel sounds. The abdomen was soft, non-tender, and without masses, organomegaly, or appreciable enlargement of the abdominal aorta. Examination of the extremities revealed easily palpable radial, femoral and pedal pulses. There was no cyanosis, clubbing or edema. Examination of the skin revealed no evidence of significant rashes, suspicious appearing nevi or other concerning lesions. Neurologically the patient is awake and alert and there is no focal neurological deficits Results - Laboratory Findings CBC and BMP: 04/01/18 12:55 04/01/18 12:55 Abnormal lab findings: Abnormal Labs 04/01/18 12:55 BUN 25 H - Diagnostic Findings Chest x-ray: image reviewed Assessment and Plan Plan: 1 recurrent spontaneous pneumothorax, right-sided [place] estimated to be around 20- 25% of the right hemithorax. 2 shortness of breath secondary to above 3 neurofibromatosis 4 history of smoking PLAN I will reinsert the right-sided Thoravent. Daily chest x-rays. Incentive spirometer. May need a thoracic surgery evaluation at a later stage regarding the recurrent right-sided pneumothorax.
--- NOTE | 2018-04-01 20:53 | P.PCN ---
Date of Procedure: 04/01/18 Preoperative Diagnosis: Right-sided pneumothorax 20-25% Postoperative Diagnosis: Right-sided pneumothorax Procedure(s) Performed: Insertion of Thoravent Anesthesia: local Surgeon: Alicia Calhoun Estimated Blood Loss (ml): 0 Pathology: other Condition: stable Disposition: floor Operative Findings: The procedure including the potential complicated was extended to the patient at length. A timeout was obtained. Consent was signed. The skin was infiltrated with 1% lidocaine at location of the anterior second intercostal space. The skin was incised with a scalpel. Following that a 13-Syriac Thoravent catheter was secured in place and it was inserted without any difficulties or complications. The right-sided pneumothorax was deflated. The appropriate dressing was applied. The vent was connected to a Pleur-evac. A chest x-ray showed adequate positioning of the tube and there were no complications. The right lung is expanded. The Thoravent will be connected to the Pleur-evac for the next 24 hours. The patient will be admitted to the medical floor.
--- NOTE | 2018-04-01 20:58 | XR ---
EXAMINATION: XR chest 1V portable DATE AND TIME: 04/01/2018 8:50 PM CLINICAL INDICATION: thoravent placement TECHNIQUE: PA and lateral COMPARISON: Chest radiograph 04/01/2018 at 3:35 PM FINDINGS: Fluoroscopy vent noted over the right upper hemithorax, the catheter's orientation is verti jasper oriented presently, different than the more horizontal orientation seen on the prior study. The right pneumothorax is mildly improved when compared to the prior study. The craniocaudal dimensio n is currently 2.8 cm, previously it was 4.3 cm. Remainder of the pleural spaces are negative. The lungs are clear. The cardiac silhouette is not enla rged. The skeletal structures and soft tissues are negative for acute findings. IMPRESSION: Right pneumothorax has mildly improved.
[2018-04-01] MEDS ORDERED: ACETAMINOPHEN TAB 325 MG TAB PO PRN (21:03)
[2018-04-01] MEDS ORDERED: NALOXONE 0.4 MG/ML 1 ML VIAL IV PRN (21:38)
[2018-04-01] MEDS ORDERED: LACTULOSE 20 GM/30 ML CUP PO PRN (21:38)
[2018-04-01] MEDS ORDERED: MAGNESIUM HYDROXIDE 2,400 MG/10 ML CUP PO PRN (21:38)
[2018-04-01] MEDS ORDERED: MELATONIN 3 MG TABLET PO PRN (21:38)
--- NOTE | 2018-04-01 22:10 | HP ---
HISTORY AND PHYSICAL DATE OF ADMISSION: 04/01/2018 DATE OF SERVICE: 04/01/2018 PRESENTING COMPLAINT: Chest pain, short of breath. HISTORY OF PRESENTING COMPLAINT: This is a pleasant 37-year-old patient who is originally from [place]. The patient was here in September of this year, had a spontaneous pneumothorax and a Thora Vent placed. Subsequently in October, he had an episode of episode of pneumothorax, was seen by Dr. Bueno in the office. The patient presented yesterday with increasing pain on the right side of the chest, short of breath, found to have a 20 to 25% right sided pneumothorax. Dr. Montes did attempt a Thora-Vent in the ER. Subsequently patient was sent to the floor but Dr. Calhoun did finally put the Thora vent and connected to the suction. The patient stopped smoking about a year ago. REVIEW OF SYSTEMS: CONSTITUTIONAL: None. HEENT: None. RESPIRATORY: As above. CARDIOVASCULAR: None. GASTROINTESTINAL: None. GENITOURINARY: None. MUSCULOSKELETAL: None. Dermatological, hematologic, lymphatic: None. PSYCHIATRY: None. NEUROLOGICAL: None. PAST MEDICAL HISTORY: None. SURGICAL HISTORY: Surgery for left club foot and ThoraVent. SOCIAL HISTORY: Lives at his [id number]'s place. The patient smoked for about 18 years. Did stop smoking. Alcohol occasionally. Works in a factory. FAMILY HISTORY: Father had stomach bleeding. HOME MEDICATIONS: Include: 1. Vitamin D3 1000 units a day. 2. Vitamin B12 1000 mcg a day. 3. Advil p.r.n. 4. Claritin 10 mg a day. ALLERGIES: None. PHYSICAL EXAMINATION: VITAL SIGNS: Temperature 97.6, pulse 84, respiratory 20, blood pressure 117/68, pulse ox 95 percent on room air. GENERAL APPEARANCE: Average built, sitting up, not in distress. EYES: Pupils equal. Conjunctivae normal. HEENT: External appearance of nose and ears normal. Oral cavity normal. NECK: JVD not raised. Mass not palpable. RESPIRATORY: Effort normal. LUNGS: Fair air entry. Right chest wall has got a Thora-Vent in place. ABDOMEN: Soft, nontender. Liver and spleen not palpable. LYMPHATICS: No lymph nodes palpable in the neck and axillae. PSYCHIATRY: Alert and oriented x3. Mood and affect normal. NEUROLOGICAL: Pupils equal. Cranial nerves grossly intact. Power and sensation grossly intact. INVESTIGATIONS: White count 5.4, hemoglobin 16.1, potassium 4. Chest x-ray personally reviewed by me shows about 20-25 percent pneumothorax on the right side when he initially presented. ASSESSMENT: Recurrent right-sided pneumothorax. This is probably his 3rd episode. The patient may need surgical intervention given that this has happened in a short period of time. We will get a cardiothoracic opinion. I did discuss with Dr. Calhoun from Pulmonary pulmonary. Patient will use inspiratory spirometer. Pain control in place. Copy to Dr. Woody Aceves. MMANTONIOL / RAIZAN: [id number] /
--- NOTE | 2018-04-02 07:11 | XR ---
INDICATION: Pneumothorax COMPARISON: CXR 04/01/18 FINDINGS: Single frontal view of the chest is provided. Right-sided chest tube remains in place. Right apical pneumothorax is stable in size measuring 2.8 cm in craniocaudal dimension. The lungs are otherwise clear. Heart size and pulmonary vascularity are normal. There are no acute osseous findings. IMPRESSION: Stable right apical pneumothorax.
[2018-04-02] MEDS: CHOLECALCIFEROL 1,000 UNIT TAB PO SCH (08:40)
[2018-04-02] MEDS: LORATADINE 10 MG TAB PO SCH (08:41)
[2018-04-02] MEDS: CYANOCOBALAMIN 500 MCG TAB PO SCH (08:41)
--- NOTE | 2018-04-02 09:21 | P.PN ---
Subjective Progress Note Date: 04/02/18 A 37-year-old male patient who came into the emergency department with acute shortness of breath and right-sided chest pain. He was found to have a right- sided pneumothorax. 2 attempts to insert a fluoroscopy vent by emergency room doctor had failed and pulmonary consultation was requested. The patient is known to me. I taking care of him back in September 2017 when he presented with a similar right-sided pneumothorax. At that time, the patient had a 40% pneumothorax on the right and he was hemodynamically stable and had a fluoroscopy vent inserted and the tube was removed subsequently without any complications and the patient was doing well throughout this time without any recurrent event. No trauma to the chest. No hemodynamic instability. No signs of any tension. On 04/02/2018, the patient is hemodynamically stable. Allow chest x-ray was done and showed significant improvement in the right-sided pneumothorax. CT surgery has been consulted. As mentioned earlier, the patient had no signs of tension pneumothorax. A fluoroscopy vent was inserted successfully yesterday and was attached to the Pleur-evac. I consider a further 6 surgery evaluation on this patient based on the recurrent nature of this right-sided pneumothorax. He has no specific complaints for now. He is doing extremely well. No issues with pain. He is using incentive spirometer. No air leaks on the lower back. Objective - Vital Signs Vital signs: Vital Signs Temp 97.5 F L 04/02/18 05:00 Pulse 72 04/02/18 08:00 Resp 16 04/02/18 08:00 BP 124/75 04/02/18 05:00 Pulse Ox 96 04/02/18 05:00 Intake & Output 04/01/18 04/02/18 04/02/18 18:59 06:59 18:59 Intake Total 590 Balance 590 Weight 81.193 kg Intake: Oral 590 Other: Voiding Method Toilet Toilet # Voids 1 - Exam Gen. appearance, comfortable likely distress Head exam was generally normal. There was no scleral icterus or corneal arcus. Mucous membranes were moist. Neck was supple and without jugular venous distension, thyromegaly, or carotid bruits. Carotids were easily palpable bilaterally. There was no adenopathy. Lungs sounds are markedly diminished on the right compared to the left, the patient has a right-sided Thoravent in place. Cardiac exam revealed the PMI to be normally situated and sized. The rhythm was regular and no extrasystoles were noted during several minutes of auscultation. The first and second heart sounds were normal and physiologic splitting of the second heart sound was noted. There were no murmurs, rubs, clicks, or gallops. Abdomen abdomen Abdominal exam revealed normal bowel sounds. The abdomen was soft, non-tender, and without masses, organomegaly, or appreciable enlargement of the abdominal aorta. Examination of the extremities revealed easily palpable radial, femoral and pedal pulses. There was no cyanosis, clubbing or edema. Examination of the skin revealed no evidence of significant rashes, suspicious appearing nevi or other concerning lesions. Neurologically the patient is awake and alert and there is no focal neurological deficits - Labs CBC & Chem 7: 04/01/18 12:55 04/01/18 12:55 Labs: Abnormal Lab Results - Last 24 Hours (Table) 04/01/18 Range/Units 12:55 BUN 25 H (9-20) mg/dL Assessment and Plan Plan: 1 recurrent spontaneous pneumothorax, right-sided [place] estimated to be around 20- 25% of the right hemithorax. The patient underwent a successful insertion of a Thoravent with expansion of the right lung. There is no ongoing air leak for now. 2 shortness of breath secondary to above 3 neurofibromatosis 4 history of smoking PLAN Keep the Thoravent in place. Keep the suction for another 24 hours. Monitor for any air leaks. Consider a thoracoscopic surgical evaluation in view of the recurrent nature of this right-sided pneumothorax. He is doing well. No signs of any tension. Using incentive spirometer.
--- NOTE | 2018-04-02 11:36 | P.GSCN ---
History of Present Illness Consult date: 04/02/18 Reason for Consult: Recurrent right-sided pneumothorax, surgical recommendations Requesting physician: Yona Ramirez History of present illness: This is a 37-year-old active male patient of Dr. Aceves with a previous medical history of spontaneous right pneumothorax in September 2017 and previous tobacco dependence. He presented to [facility] emergency room yesterday with complaints of significant shortness of breath similar to when he had his previous pneumothorax. He denied any other symptoms. Chest x-ray was completed demonstrating right-sided pneumothorax. Thoravent was placed in the ER by Dr. Calhoun which was connected to a Pleur-evac and placed to continuous wall suction. The patient was admitted for evaluation and treatment. This morning's chest x-ray demonstrated near resolution of his pneumothorax. Since this is a second occurrence of spontaneous pneumothorax Dr. Peña from cardiothoracic surgery was consulted regarding surgical recommendations. Review of Systems Review of systems was completed and was negative except as noted. - Respiratory Reports dyspnea Past Medical History Additional Past Medical History / Comment(s): : Neurofibromatosis, history of hemangioma, chronic neck pain, history of smoking , previous history of a right- sided pneumothorax back in September 2017 treated with a Thoravent History of Any Multi-Drug Resistant Organisms: None Reported Past Surgical History: Orthopedic Surgery Additional Past Surgical History / Comment(s): 10/15/17 Thoravent placed, lt foot surgery d/t abnormality. 04/01/2018 right-sided thoravent placed. Past Anesthesia/Blood Transfusion Reactions: No Reported Reaction Past Psychological History: No Psychological Hx Reported Smoking Status: Former smoker Past Alcohol Use History: Occasional Past Drug Use History: None Reported - Past Family History Father Family Medical History: GI Bleed Additional Family Medical History / Comment(s): Father had stomach bleeding. He is but pt does not know cause of . Mother Family Medical History: Cancer Additional Family Medical History / Comment(s): Mother had stomach cancer and is . Medications and Allergies Home Medications Medication Instructions Recorded Confirmed Type Cholecalciferol [Vitamin D3] 1,000 unit PO DAILY 04/01/18 04/01/18 History Cyanocobalamin (Vitamin B-12) 1,000 mcg PO DAILY 04/01/18 04/01/18 History [Vitamin B-12] Ibuprofen [Advil] 200 - 400 mg PO Q8HR PRN 04/01/18 04/01/18 History Loratadine [Claritin] 10 mg PO DAILY 04/01/18 04/01/18 History Allergies Allergy/AdvReac Type Severity Reaction Status Date / Time No Known Allergies Allergy Verified 04/01/18 12:30 Surgical - Exam Vital Signs Temp Pulse Resp BP Pulse Ox 97.8 F 84 20 129/83 97 04/01/18 12:17 04/01/18 12:17 04/01/18 12:17 04/01/18 12:17 04/01/18 12:17 - General well developed, well nourished, no distress, no pain - Eyes PERRL, normal ocular movement - ENT no hearing loss - Neck no masses, no bruits, trachea midline - Respiratory Lungs sounds clear bilaterally. Respirations even, nonlabored. Currently on room air oxygen saturation 96%. Able to achieve 3500 mL on his incentive spirometry. Right-sided thoravent in place, was connected to atrium with continuous wall suction, currently capped, no air leak present. - Cardiovascular S1, S2 present. Regular rate and rhythm. Palpable peripheral pulses bilaterally. No edema present. No calf pain or tenderness noted. - Abdomen Abdomen: soft, non tender, bowel sounds - Genitourinary Deferred - Rectum Deferred - Integumentary no rash, no growths - Neurologic normal coordination, normal sensation - Musculoskeletal normal gait, normal posture - Psychiatric oriented to time, oriented to person, oriented to place, speech is normal, memory intact Results - Labs 04/01/18 12:55 04/01/18 12:55 Abnormal Lab Results - Last 24 Hours (Table) 04/01/18 Range/Units 12:55 BUN 25 H (9-20) mg/dL Diabetes panel 04/01/18 Range/Units 12:55 Sodium 141 (137-145) mmol/L Potassium 4.0 (3.5-5.1) mmol/L Chloride 107 (98-107) mmol/L Carbon Dioxide 26 (22-30) mmol/L BUN 25 H (9-20) mg/dL Creatinine 0.79 (0.66-1.25) mg/dL Glucose 92 (74-99) mg/dL Calcium 9.8 (8.4-10.2) mg/dL AST 22 (17-59) U/L ALT 38 (21-72) U/L Alkaline Phosphatase 42 (38-126) U/L Total Protein 7.7 (6.3-8.2) g/dL Albumin 4.7 (3.5-5.0) g/dL Calcium panel 04/01/18 Range/Units 12:55 Calcium 9.8 (8.4-10.2) mg/dL Albumin 4.7 (3.5-5.0) g/dL Pituitary panel 04/01/18 Range/Units 12:55 Sodium 141 (137-145) mmol/L Potassium 4.0 (3.5-5.1) mmol/L Chloride 107 (98-107) mmol/L Carbon Dioxide 26 (22-30) mmol/L BUN 25 H (9-20) mg/dL Creatinine 0.79 (0.66-1.25) mg/dL Glucose 92 (74-99) mg/dL Calcium 9.8 (8.4-10.2) mg/dL Adrenal panel 04/01/18 Range/Units 12:55 Sodium 141 (137-145) mmol/L Potassium 4.0 (3.5-5.1) mmol/L Chloride 107 (98-107) mmol/L Carbon Dioxide 26 (22-30) mmol/L BUN 25 H (9-20) mg/dL Creatinine 0.79 (0.66-1.25) mg/dL Glucose 92 (74-99) mg/dL Calcium 9.8 (8.4-10.2) mg/dL Total Bilirubin 0.9 (0.2-1.3) mg/dL AST 22 (17-59) U/L ALT 38 (21-72) U/L Alkaline Phosphatase 42 (38-126) U/L Total Protein 7.7 (6.3-8.2) g/dL Albumin 4.7 (3.5-5.0) g/dL - Imaging Chest x-ray: report reviewed, image reviewed CT scan - chest: report reviewed, image reviewed Assessment and Plan (1) Tobacco dependence in remission Current Visit: No Status: Resolved Code(s): F17.201 - NICOTINE DEPENDENCE, UNSPECIFIED, IN REMISSION SNOMED Code(s): 020682965 (2) Spontaneous pneumothorax Current Visit: Yes Status: Acute Code(s): J93.83 - OTHER PNEUMOTHORAX SNOMED Code(s): 47355067 Plan: The patient was seen and examined at the bedside with Dr. Peña. Chart/ diagnostics were reviewed including previous chest x-rays and computed tomography scan. There was no air leak present in the atrium, we capped his thoravent, again no air leak was present. We discussed with the patient and his mom who was at bedside that the patient is at increased risk for future spontaneous pneumothoraces. We offered surgical intervention in the form of right video-assisted thoracoscopy. The usual perioperative course as well as risks and benefits were discussed, all questions were answered, and the patient consented to surgery. He will be nothing by mouth after midnight for right- sided VATS with stapling of blebs tomorrow, 04/03/[address] Peña. Patient was encouraged to continue incentive spirometry use as well as continued smoking cessation. He may increase his activity and ambulate in the hallway. Medical management per primary care service. More recommendations to follow. Thank you Dr. Ramirez for this consult. We will continue to follow with you. Time with Patient: Greater than 30
--- NOTE | 2018-04-02 12:06 | CDI ---
Last Revision, April 2017 Documentation Clarification Form Date: 04/02/2018 11:47:33 AM From: Alejandra Arshad RN, CCDS Admit Date: 04/01/2018 4:41:00 PM Patient Name: Nilesh Avila Visit Number: [id number] Discharge Date: ATTENTION: The Clinical Documentation Specialists (CDI) and [facility] Coding Staff appreciate your assistance in clarifying documentation. Please respond to the clarification below the line at the bottom and electronically sign. The CDI & [facility] Coding staff will review the response and follow-up if needed. Please note: Queries are made part of the Legal Health Record. If you have any questions, please contact the author of this message via ITS. Alicia Barnes MD Recurrent Spontaneous Pneumothorax is documented in your consult and ongoing progress notes. History/risk factors: Pneumothorax, Neurofibromatosis, Former smoker Clinical Indicators: Present with acute shortness of breath and right-sided chest pain. He denied chest trauma, no signs of any tension. CXR: right-sided Pneumothorax 20-25 % Vital Signs: 129/83 84 20 97.8 97 % Other Clinical Indicators: Treatment: Insertion of Thoravent Serial CXR's per orders Monitor O2 Sat's Incentive spirometer In your professional opinion, can the type of pneumothorax be further specified as one of the following? Primary spontaneous pneumothorax Secondary spontaneous pneumothorax (please identify the etiology) Other, please specify Unable to determine Please continue to document in your progress notes and discharge summary in order to capture severity of illness and risk of mortality. Include clinical findings that support your diagnosis. Primary spontaneous pneumothorax, recurrent MTDD
--- NOTE | 2018-04-02 20:14 | PN ---
PROGRESS NOTE DATE OF SERVICE: 04/02/18. PRESENTING COMPLAINT: Pneumothorax. INTERVAL HISTORY: This patient with pneumothorax with 3rd episode got a Thora-Vent on the right side. Chest tube was taken off today. The patient is going done for a VATS procedure tomorrow. Breathing is stable. Patient's mother is not at the bedside. REVIEW OF SYSTEMS: Done for constitutional, cardiovascular, GI, pulmonary; relevant findings as above. CURRENT MEDICATIONS: Reviewed. PHYSICAL EXAMINATION: Temperature 97.8, pulse 86, respirations 17, blood pressure 130/78, pulse ox 96 percent room air. GENERAL APPEARANCE: Sitting up, comfortable. EYES: Pupils equal. Conjunctivae normal. NECK: JVD not raised. Mass not palpable. RESPIRATORY: Effort normal. Lungs fair entry. CARDIOVASCULAR: 1st and 2nd sounds normal. No edema. ABDOMEN: Soft, nontender. Liver and spleen not palpable. PSYCHIATRY: Alert and oriented x3. Mood and affect normal. Right chest wall has got a Thora-Vent in place, not connected to the chest tube anymore. ASSESSMENT: Recurrent right pneumothorax, third episode, had a Thora-Vent and a chest tube that has been clamped. The patient will be going for a VATS procedure tomorrow. Care was discussed with the patient and [id number] at the bedside. MMODL / IJN: [id number] /
[2018-04-03] MEDS ORDERED: DEXAMETHASONE SOD PHOSPHATE 10 MG/ML 1 ML VIAL IV ONE ×2 (01:21→06:00)
[2018-04-03] MEDS ORDERED: LIDOCAINE 1% 20 ML VIAL (10MG/ML) FOR IV START INTRADERMA PRN (01:21)
[2018-04-03] MEDS ORDERED: MIDAZOLAM 2 MG/2 ML VIAL IV PRN (06:00)
[2018-04-03] MEDS ORDERED: ONDANSETRON 4 MG/2 ML VIAL IVP ONE (06:00)
[2018-04-03] MEDS ORDERED: fentaNYL (PF) 50 MCG/ML 2 ML AMP IV PRN (06:00)
[2018-04-03] MEDS ORDERED: LACTATED RINGERS 1,000 ML IV SCH (06:00)
[2018-04-03] MEDS ORDERED: IV FLUID CONTINUATION 1,000 ML IV ONE (07:54)
[2018-04-03] MEDS ORDERED: ONDANSETRON 4 MG/2 ML VIAL ONE (09:10)
[2018-04-03] MEDS ORDERED: DEXAMETHASONE SOD PHOS (MDV) 100 MG/10 ML VIAL ONE (09:10)
[2018-04-03] MEDS ORDERED: PROPOFOL 10 MG/ML 20 ML VIAL IV ONE (09:10)
[2018-04-03] MEDS ORDERED: VECURONIUM 10 MG VIAL IV ONE (09:10)
[2018-04-03] MEDS ORDERED: SUCCINYLCHOLINE CHLORIDE 100 MG/5 ML SYR IV ONE (09:10)
[2018-04-03] MEDS ORDERED: GLYCOPYRROLATE 0.2 MG/ML 2 ML VIAL ONE (09:10)
[2018-04-03] MEDS ORDERED: MIDAZOLAM 2 MG/2 ML VIAL ONE ×2 (09:10)
[2018-04-03] MEDS ORDERED: fentaNYL (PF) 50 MCG/ML 2 ML AMP ONE ×2 (09:10)
[2018-04-03] MEDS ORDERED: NEOSTIGMINE 1 MG/ML 10 ML VIAL ONE (09:10)
[2018-04-03] MEDS ORDERED: BUPIVACAINE (PF) 0.25% 30 ML VIAL SQ ONE ×3 (09:14→10:05)
[2018-04-03] MEDS ORDERED: SODIUM CHLORIDE 0.9% 100 ML with ceFAZolin 2,000 MG IV ONE ×2 (09:45)
[2018-04-03] MEDS ORDERED: LACTATED RINGERS 1,000 ML IV ONE ×2 (10:22)
[2018-04-03] MEDS ORDERED: ONDANSETRON 4 MG/2 ML VIAL IVP PRN (11:04)
[2018-04-03] MEDS ORDERED: IPRATROPIUM-ALBUTEROL 3 ML NEB IH PRN (11:04)
[2018-04-03] MEDS ORDERED: traMADol 50 MG TAB PO PRN (11:07)
--- NOTE | 2018-04-03 11:43 | XR ---
EXAMINATION TYPE: XR chest 1V portable DATE OF EXAM: 04/03/2018 COMPARISON: 04/02/2018 HISTORY: Status post VATS FINDINGS: Right-sided chest tube is in place. No evidence for sizable pneumothorax. No evidence for infiltrate. Stable appearance of the cardio-mediastinal structures at this time. No sizable pleural effusion. IMPRESSION: 1. Postoperative changes as discussed. Right-sided chest tube is noted to be in place without sizable pneumothorax at this time.
[2018-04-03] MEDS: HYDROmorphone 1 MG/ML 1 ML SYRINGE IVP PRN ×2 (11:49→11:59)
[2018-04-03] MEDS: IPRATROPIUM-ALBUTEROL 3 ML NEB IH SCH ×3 (12:00→20:06)
[2018-04-03] MEDS ORDERED: KETOROLAC 30 MG/ML 1 ML VIAL IVP ONE (12:05)
--- NOTE | 2018-04-03 14:20 | P.PN ---
Subjective Progress Note Date: 04/03/18 Principal diagnosis: Right-sided pneumothorax A 37-year-old male patient who came into the emergency department with acute shortness of breath and right-sided chest pain. He was found to have a right- sided pneumothorax. 2 attempts to insert a fluoroscopy vent by emergency room doctor had failed and pulmonary consultation was requested. The patient is known to me. I taking care of him back in September 2017 when he presented with a similar right-sided pneumothorax. At that time, the patient had a 40% pneumothorax on the right and he was hemodynamically stable and had a fluoroscopy vent inserted and the tube was removed subsequently without any complications and the patient was doing well throughout this time without any recurrent event. No trauma to the chest. No hemodynamic instability. No signs of any tension. On 04/02/2018, the patient is hemodynamically stable. Allow chest x-ray was done and showed significant improvement in the right-sided pneumothorax. CT surgery has been consulted. As mentioned earlier, the patient had no signs of tension pneumothorax. A fluoroscopy vent was inserted successfully yesterday and was attached to the Pleur-evac. I consider a further 6 surgery evaluation on this patient based on the recurrent nature of this right-sided pneumothorax. He has no specific complaints for now. He is doing extremely well. No issues with pain. He is using incentive spirometer. No air leaks on the lower back. The patient is seen today 04/03/2018 in follow-up on the surgical floor. He is status post right video-assisted thoracoscopy with right wedge resection and mechanical pleurodesis. Chest tube remains in place. Air leak positive. There is approximately 200 ML's of bloody return thus far. X-ray revealed no sizable pneumothorax. He is currently maintaining good O2 saturations in the mid 90s on 2 L/m per nasal cannula. He is afebrile. Hemodynamically stable. His pain is well controlled. He is to receive 2 doses of cefazolin. Objective - Vital Signs Vital signs: Vital Signs Temp 98.2 F 04/03/18 11:24 Pulse 71 04/03/18 13:00 Resp 16 04/03/18 13:00 BP 137/74 04/03/18 13:00 Pulse Ox 95 04/03/18 13:00 Intake & Output 11/14/18 11/15/18 11/15/18 18:59 06:59 18:59 Intake Total 054 653 3836 Output Total 225 Balance 955 774 3423 Intake: IV 1700 Intake, IV Titration 200 Amount Lactated Ringers 1,000 ml 200 @ 20 mls/hr IV .Q24H [facility] Rx#:[id number] Oral 240 590 Output: Urine 150 Estimated Blood Loss 75 Other: Voiding Method Toilet Toilet Toilet # Voids 3 2 - Exam Gen. appearance, comfortable likely distress Head exam was generally normal. There was no scleral icterus or corneal arcus. Mucous membranes were moist. Neck was supple and without jugular venous distension, thyromegaly, or carotid bruits. Carotids were easily palpable bilaterally. There was no adenopathy. Lungs sounds are markedly diminished on the right compared to the left, the patient has a right-sided Thoravent in place. Cardiac exam revealed the PMI to be normally situated and sized. The rhythm was regular and no extrasystoles were noted during several minutes of auscultation. The first and second heart sounds were normal and physiologic splitting of the second heart sound was noted. There were no murmurs, rubs, clicks, or gallops. Abdomen abdomen Abdominal exam revealed normal bowel sounds. The abdomen was soft, non-tender, and without masses, organomegaly, or appreciable enlargement of the abdominal aorta. Examination of the extremities revealed easily palpable radial, femoral and pedal pulses. There was no cyanosis, clubbing or edema. Examination of the skin revealed no evidence of significant rashes, suspicious appearing nevi or other concerning lesions. Neurologically the patient is awake and alert and there is no focal neurological deficits - Labs CBC & Chem 7: 04/01/18 12:55 04/01/18 12:55 Assessment and Plan Assessment: Impression: 1 recurrent spontaneous pneumothorax, right-sided NJ estimated to be around 20- 25% of the right hemithorax. The patient underwent a successful insertion of a Thoravent with expansion of the right lung. He is now status post right-sided video-assisted thoracoscopy, right apex wedge resection, mechanical pleurodesis. Postoperative day #0. 2 shortness of breath secondary to above 3 neurofibromatosis 4 history of smoking PLAN: The patient was seen and evaluated by Dr. Calhoun. Chest x-ray reviewed. He is status post mechanical pleurodesis. His tube remains in place. No sizable pneumothorax. We will encourage increased use the incentive spirometer and cough and deep breathing exercises. Increase his activity as tolerated. We'll continue to follow. I, the cosigning physician, performed a history & physical examination of the patient. Lungs sounds few scattered rhonchi, crackles in the right posterior base. Maintaining good O2 saturations in the 90s on room air. I discussed the assessment and plan of care with my nurse practitioner, Chiara Srinivasan. I attest to the above note as dictated by her.
[2018-04-03] MEDS: LORATADINE 10 MG TAB PO SCH (16:12)
[2018-04-03] MEDS: CYANOCOBALAMIN 500 MCG TAB PO SCH (16:12)
[2018-04-03] MEDS: CHOLECALCIFEROL 1,000 UNIT TAB PO SCH (16:12)
[2018-04-03] MEDS: KETOROLAC 30 MG/ML 1 ML VIAL IVP SCH ×3 (16:13→23:18)
[2018-04-03] MEDS: ceFAZolin IN SWFI 2 GM/20 ML SYRINGE IVP SCH (16:48)
[2018-04-03 22:48] VITALS: RESP 16
--- NOTE | 2018-04-03 23:59 | OP ---
OPERATIVE REPORT DATE OF THE SURGERY: 04/03/2018. SURGEON: Dr. Becky Peña. ANIMAL HUSBANDRY TECHNICIAN: Bri CTA PREOPERATIVE DIAGNOSIS: Recurrent spontaneous right-sided pneumothorax, continuous air leak. POSTOPERATIVE DIAGNOSIS: Right upper lobe blebs. PROCEDURE: Right video thoracoscopic wedge apical resection of the lung with mechanical pleurodesis. INDICATION FOR SURGERY: Patient is a 37-year-old gentleman that presents with his 2nd episode of spontaneous pneumothorax. The initial one was managed conservatively with a Thoravent. The patient at this point has also continuous air leak. In view of recurrence and the continuous leak, the patient was deemed a candidate for surgery. Risks, benefits, and alternatives including the risk of prolonged air leak were discussed with him. The patient agreed to proceed. DESCRIPTION OF THE PROCEDURE: The patient in supine position a double-lumen endotracheal intubation was performed. Next, fiberoptic bronchoscopy confirmed the tube position. Sequential compression stockings were applied to both lower extremities. A Anderson catheter was inserted. The patient received 2 g of cefazolin intravenously. The patient was positioned in the left lateral decubitus position and all pressure points were protected. Fiberoptic bronchoscopy confirmed appropriate position of the tube also. The right lung was deflated and access was obtained. The 7th intercostal space mid axillary line by making a 1.5 cm incision and inserting a 10.5 mm Thora port through which a 10 mm 0 degree scope was advanced. There was one adhesion strands between the right upper lobe and the anterior chest wall that was lysed with the Bovie. We created 1 posterior and 1 anterior incision, each is around 2 cm in width to triangulate. We identified the apex where there seemed to be at least 1 bleb at that level. We could not establish any air leak specifically. We proceeded with several application of a 60 mm medium thickness staple to perform a wedge resection of that apex. The staple line appeared intact and there was no bleeding. We tested this whole area in the upper lobe under water and there was no evidence of air leak. With that, the camera was switched to the anterior working position and a 28-Welsh chest tube was placed via the initial camera port. This was affixed to the skin with a GS 21 Ethibond suture. The anterior and posterior incisions were closed in layers using Vicryl 2-0 for the fascia, Vicryl 3- 0 for the subcutaneous tissue and Vicryl 4-0 for the skin in a subcuticular manner. Skin glue was applied. There was evidence of some air leak at the end from the chest tube. To mention that we also using a Bovie pad proceeded at a mechanical pleurodesis of the upper half of the chest wall. The patient was transferred to the recovery room, extubated in stable condition. MMQI / LAKSHMI: [id number] /
[2018-04-04] MEDS: ceFAZolin IN SWFI 2 GM/20 ML SYRINGE IVP SCH (02:35)
[2018-04-04] MEDS: KETOROLAC 30 MG/ML 1 ML VIAL IVP SCH ×2 (05:21→11:27)
--- NOTE | 2018-04-04 07:04 | XR ---
EXAMINATION TYPE: XR chest 1V portable DATE OF EXAM: 04/04/2018 CLINICAL HISTORY: Difficulty breathing post VATS progress study. TECHNIQUE: Single AP portable frontal view of the chest is obtained. COMPARISON: Chest x-ray from one day earlier and older studies. FINDINGS: A right-sided chest tube projecting towards apex is stable in appearance. There is tiny re sidual right apical pneumothorax seen better on current study. Overlying EKG leads are redemonstrated. Cardiac silhouette size is within normal limits currently. Th ere is persistent patchy left basilar opacity silhouetting left heart border. Right lung remains patricia r. No pleural effusion is evident. IMPRESSION: Right-sided chest tube with tiny right apical pneumothorax seen better on current study. Persistent patchy left basilar atelectasis and/or infiltrate noted.
--- NOTE | 2018-04-04 07:46 | PN ---
PROGRESS NOTE DATE OF SERVICE: April 03, 2018. PRESENTING COMPLAINT: Right-sided pneumothorax. INTERVAL HISTORY: This patient pneumothorax today underwent a VATS procedure with wedge resection of right side. Has a chest tube in place. I spoke to Arlette from Cardiothoracic. There is no air leak. Pain is controlled. Sitting up, comfortable. Breathing is stable. REVIEW OF SYSTEMS: Done for constitutional, cardiovascular, GI, pulmonary and relevant findings as above. CURRENT MEDICATIONS: Reviewed that include DuoNeb, IV Ancef. PHYSICAL EXAMINATION: VITAL SIGNS: Temperature 98.2, pulse 100. Respiration 12. Blood pressure 132/84, pulse ox 100 percent. GENERAL APPEARANCE: Sitting up. Comfortable. EYES: Pupils are equal. Conjunctivae normal. HEENT: External appearance of nose and ears normal. Oral cavity normal. NECK: JVD not raised. Mass not palpable. RESPIRATORY: Effort normal. LUNGS fair entry. CARDIOVASCULAR: 1st and 2nd sounds normal. No edema. ABDOMEN: Soft, nontender. Liver and spleen not palpable. CHEST: Right-sided chest tube. INVESTIGATIONS: No blood work from today. ASSESSMENT: 1. Recurrent right pneumothorax. Third episode. 2. Status post right-sided VATS procedure with wedge resection. PLAN: Stable, continue current medication and treatment plan. The patient is currently on low suction. MMODL / IJN: [id number] /
[2018-04-04 08:29] LABS: Basophils % (A) 0 %; Eosinophils % (A) 0 %; HCT 45.8 % (39.0-53.0); HGB 15.6 gm/dL (13.0-17.5); Lymphocytes # (A) 1.1 k/uL (1.0-4.8); Lymphocytes % (A) 11 %; MCH 28.4 pg (25.0-35.0); MCHC 34.1 g/dL (31.0-37.0); MCV 83.3 fL (80.0-100.0); Monocytes # (A) 0.8 k/uL (0-1.0); Monocytes % (A) 8 %; Neutrophils # (A) 8.1 k/uL (1.3-7.7); Neutrophils % (A) 80 %; Platelet Count 177 k/uL (150-450); RDW 13.6 % (11.5-15.5); WBC 10.1 k/uL (3.8-10.6)
[2018-04-04] MEDS: CYANOCOBALAMIN 500 MCG TAB PO SCH (08:44)
[2018-04-04] MEDS: LORATADINE 10 MG TAB PO SCH (08:44)
[2018-04-04] MEDS: CHOLECALCIFEROL 1,000 UNIT TAB PO SCH (08:44)
[2018-04-04 08:50] LABS: Anion Gap 10 mmol/L; Blood Urea Nitrogen 16 mg/dL (9-20); Calcium 9.6 mg/dL (8.4-10.2); Carbon Dioxide 26 mmol/L (22-30); Chloride 105 mmol/L (98-107); Glucose 108 mg/dL (74-99); Potassium 4.6 mmol/L (3.5-5.1); Sodium 141 mmol/L (137-145)
[2018-04-04] MEDS: IPRATROPIUM-ALBUTEROL 3 ML NEB IH SCH ×3 (09:05→15:43)
--- NOTE | 2018-04-04 11:27 | XR ---
EXAMINATION TYPE: XR chest 2V DATE OF EXAM: 04/04/2018 COMPARISON: Chest x-ray earlier today. HISTORY: Right-sided chest tube and pneumothorax progress study. Post VATS procedure. TECHNIQUE: Frontal and lateral views of the chest are obtained. FINDINGS: There is redemonstration of right apical chest tube with adjacent tiny right apical pneumo thorax unchanged from prior. Subcutaneous emphysema right lower lateral chest wall is redemonstrated. Improved aeration with patchy opacity left lung base remains present. Right lung remains clear. The cardiac silhouette size is within normal limits. Perhaps slight mediastinal shift to the right is sta ble. The osseous structures are intact. IMPRESSION: Stable small right apical pneumothorax despite chest tube placement. Improving left basi lar atelectasis and/or infiltrate noted.
--- NOTE | 2018-04-04 13:27 | P.PN ---
Subjective Progress Note Date: 04/04/18 Principal diagnosis: Recurrent right-sided pneumothorax, neurofibromatosis, history of hemangioma, chronic neck pain, history of tobacco abuse, history of right-sided pneumothorax in September 2017 treated with a Thoravent. POD #1 right video-assisted thoracoscopic wedge apical resection of the lung with mechanical pleurodesis. The patient is sitting up to the bedside edge. He is in no acute distress. He denies any complaints of pain or shortness of breath this time. He is achieving 3000 mL on his incentive spirometry and his oxygen saturations are 97 % on room air. Right pleural chest tube remains in place to waterseal with no air leak present. It has drained 250 mL of thin serosanguineous drainage since his surgery. Objective - Vital Signs Vital signs: Vital Signs Temp 98 F 04/04/18 07:27 Pulse 93 04/04/18 12:18 Resp 16 04/04/18 07:39 BP 119/76 04/04/18 07:27 Pulse Ox 97 04/04/18 07:27 Intake & Output 04/03/18 04/04/18 04/04/18 18:59 06:59 18:59 Intake Total 1800 450 Output Total 225 50 Balance 1575 400 Weight 81.193 kg Intake: IV 1700 Oral 100 450 Output: Chest Tube Drainage 50 Thora-Vent Right 50 Urine 150 Estimated Blood Loss 75 Other: Voiding Method Toilet Toilet # Voids 4 - Constitutional General appearance: Present: cooperative, no acute distress, obese - Respiratory Details: Lung sounds with few scattered crackles throughout, diminished to his right lower lobe. Respirations are symmetrical and nonlabored. Oxygen saturation are 97% on room air. He is achieving 3000 mL on his incentive spirometry. Right pleural chest tube remains to water seal. No air leak is present. Draining thin serosanguineous drainage. 250 mL output since surgery. - Cardiovascular Details: Regular rhythm and rate. S1 and S2 present, negative for S3, gallop or murmur. Remote telemetry showing normal sinus rhythm heart rate 80. No edema is present. Knee-high sequential compression devices in place to his bilateral lower extremities. - Gastrointestinal Gastrointestinal Comment(s): Abdomen is soft, nontender and nondistended. Active bowel sounds to all 4 abdominal quadrants. Tolerating oral intake. Passing flatus. - Genitourinary Genitourinary Comment(s): Voiding clear yellow urine. - Integumentary Integumentary Comment(s): Skin is warm and dry. No clubbing or cyanosis present. Right chest VATS incisions clean dry and approximated. No drainage or redness present. - Neurologic Neurologic: Present: CNII-XII intact - Musculoskeletal Musculoskeletal: Present: gait normal, strength equal bilaterally - Psychiatric Psychiatric: Present: A&O x's 3, appropriate affect, intact judgment & insight - Allied health notes Allied health notes reviewed: nursing - Labs CBC & Chem 7: 04/04/18 07:42 04/04/18 07:42 Labs: Abnormal Lab Results - Last 24 Hours (Table) 04/04/18 04/04/18 Range/Units 07:42 07:42 Neutrophils # 8.1 H (1.3-7.7) k/uL Glucose 108 H (74-99) mg/dL - Imaging and Cardiology Chest x-ray: report reviewed, image reviewed Assessment and Plan (1) Neurofibromatosis Current Visit: Yes Status: Acute Code(s): Q85.00 - NEUROFIBROMATOSIS, UNSPECIFIED SNOMED Code(s): 09816025 (2) History of hemangioma Current Visit: Yes Status: Acute Code(s): Z87.898 - PERSONAL HISTORY OF OTHER SPECIFIED CONDITIONS SNOMED Code(s): 432996878 (3) Chronic neck pain Current Visit: Yes Status: Acute Code(s): M54.2 - CERVICALGIA; G89.29 - OTHER CHRONIC PAIN SNOMED Code(s): 2965153161714 (4) Spontaneous pneumothorax Current Visit: Yes Status: Acute Code(s): J93.83 - OTHER PNEUMOTHORAX SNOMED Code(s): 32963570 (5) Tobacco dependence in remission Current Visit: No Status: Resolved Code(s): F17.201 - NICOTINE DEPENDENCE, UNSPECIFIED, IN REMISSION SNOMED Code(s): 141676271 Plan: 1. We will place his right pleural chest tube to waterseal and clamp his chest tube. If no air leak is present his right pleural chest tube will be removed and he can be discharged home per to the cardiothoracic standpoint when okay with primary care service. 2. Repeat chest x-ray now with chest tube clamped. 3. Increase activity as tolerated. 4. Pain control per current when necessary orders. 5. Encourage use of his incentive spirometry every hour while awake. 6. No driving for 1 week post discharge. 7. No lifting pressure pulling anything greater than 10 pounds for 2 weeks until follow-up with Dr. Peña. 8. Prescription for chest x-ray in 2 weeks prior to his follow-up visit with Dr. Peña in the office. 9. Further recommendations to follow based on patient's clinical course. Right pleural chest tube removed without incident. Sutures were secured in place. Covered with 4 x 4 gauze and secured with tape. His suture to his right chest will be removed in 2 weeks upon his follow-up visit with Dr. Peña. Time with Patient: Greater than 30
[2018-04-04 14:34] VITALS: BP 114/72; TEMP 97.8
--- NOTE | 2018-04-04 14:41 | P.PN ---
Subjective Progress Note Date: 04/04/18 Principal diagnosis: Right-sided pneumothorax A 37-year-old male patient who came into the emergency department with acute shortness of breath and right-sided chest pain. He was found to have a right- sided pneumothorax. 2 attempts to insert a fluoroscopy vent by emergency room doctor had failed and pulmonary consultation was requested. The patient is known to me. I taking care of him back in September 2017 when he presented with a similar right-sided pneumothorax. At that time, the patient had a 40% pneumothorax on the right and he was hemodynamically stable and had a fluoroscopy vent inserted and the tube was removed subsequently without any complications and the patient was doing well throughout this time without any recurrent event. No trauma to the chest. No hemodynamic instability. No signs of any tension. On 04/02/2018, the patient is hemodynamically stable. Allow chest x-ray was done and showed significant improvement in the right-sided pneumothorax. CT surgery has been consulted. As mentioned earlier, the patient had no signs of tension pneumothorax. A fluoroscopy vent was inserted successfully yesterday and was attached to the Pleur-evac. I consider a further 6 surgery evaluation on this patient based on the recurrent nature of this right-sided pneumothorax. He has no specific complaints for now. He is doing extremely well. No issues with pain. He is using incentive spirometer. No air leaks on the lower back. The patient is seen today 04/03/2018 in follow-up on the surgical floor. He is status post right video-assisted thoracoscopy with right wedge resection and mechanical pleurodesis. Chest tube remains in place. Air leak positive. There is approximately 200 ML's of bloody return thus far. X-ray revealed no sizable pneumothorax. He is currently maintaining good O2 saturations in the mid 90s on 2 L/m per nasal cannula. He is afebrile. Hemodynamically stable. His pain is well controlled. He is to receive 2 doses of cefazolin. On 04/04/2018 patient seen in follow-up on medical surgical floor. Chest tube has been discontinued, today's chest x-ray has been reviewed by Dr. Calhoun, and there is a tiny right apical pneumothorax, with patchy left basilar atelectasis. After removal of the chest tube follow-up chest x-ray showed stable findings of small right apical pneumothorax, and improving left basilar atelectasis. He is in no acute distress, he is working on his incentive spirometer, achieving 3000 ML on it. Lung sounds are diminished over left base , and clear on the right. Patient has been tolerating ambulation. Lung wedge biopsy is still pending at this time, afebrile, vital signs are stable. From pulmonary perspective patient is clear for discharge Objective - Vital Signs Vital signs: Vital Signs Temp 98 F 04/04/18 07:27 Pulse 93 04/04/18 12:18 Resp 16 04/04/18 07:39 BP 119/76 04/04/18 07:27 Pulse Ox 97 04/04/18 07:27 Intake & Output 04/03/18 04/04/18 04/04/18 18:59 06:59 18:59 Intake Total 1800 450 Output Total 225 50 Balance 1575 400 Weight 81.193 kg Intake: IV 1700 Oral 100 450 Output: Chest Tube Drainage 50 Thora-Vent Right 50 Urine 150 Estimated Blood Loss 75 Other: Voiding Method Toilet Toilet # Voids 4 - Exam Gen. appearance, comfortable likely distress Head exam was generally normal. There was no scleral icterus or corneal arcus. Mucous membranes were moist. Neck was supple and without jugular venous distension, thyromegaly, or carotid bruits. Carotids were easily palpable bilaterally. There was no adenopathy. Lungs sounds are clear on the right, and some diminished breath sounds at the left base. Chest tube has been discontinued Cardiac exam revealed the PMI to be normally situated and sized. The rhythm was regular and no extrasystoles were noted during several minutes of auscultation. The first and second heart sounds were normal and physiologic splitting of the second heart sound was noted. There were no murmurs, rubs, clicks, or gallops. Abdomen abdomen Abdominal exam revealed normal bowel sounds. The abdomen was soft, non-tender, and without masses, organomegaly, or appreciable enlargement of the abdominal aorta. Examination of the extremities revealed easily palpable radial, femoral and pedal pulses. There was no cyanosis, clubbing or edema. Examination of the skin revealed no evidence of significant rashes, suspicious appearing nevi or other concerning lesions. Neurologically the patient is awake and alert and there is no focal neurological deficits - Labs CBC & Chem 7: 04/04/18 07:42 04/04/18 07:42 Labs: Abnormal Lab Results - Last 24 Hours (Table) 04/04/18 04/04/18 Range/Units 07:42 07:42 Neutrophils # 8.1 H (1.3-7.7) k/uL Glucose 108 H (74-99) mg/dL Assessment and Plan Plan: 1 recurrent spontaneous pneumothorax, right-sided ID estimated to be around 20- 25% of the right hemithorax. The patient underwent a successful insertion of a Thoravent with expansion of the right lung. He is now status post right-sided video-assisted thoracoscopy, right apex wedge resection, mechanical pleurodesis. Postoperative day #1. 2 shortness of breath secondary to above 3 neurofibromatosis 4 history of smoking PLAN: The patient was seen and evaluated by Dr. Calhoun. Chest x-ray reviewed. He is status post mechanical pleurodesis. His tube remains in place. No sizable pneumothorax. We will encourage increased use the incentive spirometer and cough and deep breathing exercises. Increase his activity as tolerated. We'll continue to follow. Plan: Chest x-ray pre-and post-removal of the chest tube has been reviewed by Dr. Calhoun, showed small stable right apical pneumothorax, and some left basilar atelectasis. Patient is doing well, no acute distress, vital signs are stable, he is working his incentive spirometry. Wedge biopsy still pending at this time. No oxygenation issues. Patient has been tolerating ambulation. From pulmonary perspective patient is stable for discharge home with follow-up with Dr. Calhoun in the office I performed a history & physical examination of the patient and discussed their management with my nurse practitioner, Shanita Lu. I reviewed the nurse practitioner's note and agree with the documented findings and plan of care. Lung sounds are clear on the right, diminished breath sounds on the left base. The findings and the impression was discussed with the patient. I attest to the documentation by the nurse practitioner. Time with Patient: Less than 30
[2018-04-04 15:45] VITALS: PULSE 94
--- NOTE | 2018-04-05 03:09 | DS ---
DISCHARGE SUMMARY DATE OF ADMISSION: April 01, 2018. DATE OF DISCHARGE: April 04, 2018. FINAL DIAGNOSES: Recurrent right-sided pneumothorax. This is the 3rd episode. PROCEDURE: VATS procedure with wedge resection. CONSULTATIONS: Dr. Calhoun from Pulmonary and Dr. Peña from Cardiothoracic Surgery. HOSPITAL COURSE: This very pleasant [place] gentleman presents with third episode of pneumothorax. Initially had a Thora Vent placed and later patient did go down for surgery by Dr. Peña and surgery wedge resection of the apex was carried out and mechanical pleurodesis was carried out. The patient doing well. Up and about at the time of discharge. Care was discussed with the mother in law at the bedside. On examination, temp 97.8, pulse, 16, blood pressure 112/72, pulse ox 97 percent. Lungs fair entry. The patient not to return to work until April 21. FOLLOWUP: Follow up with Dr. Peña on April 18, 2018, Dr. Woody Aceves in [place] in 1 week. Chest x-ray 04/18/18. No driving for at least 1 week. Work restrictions explained to the patient. Sheet was given. Copy to Dr. Aceves in [place]. MMODL / IJN: [id number] /
--- NOTE | 2018-04-08 07:45 | CDI ---
Last Revision, April 2017 Documentation Clarification Form Date: 04/08/18 From: Pao Workman Celia Mejia, Search Marketing Specialist Hours-8:30 am & 5 pm M-F Admit Date: 04/01/2018 4:41:00 PM Patient Name: Nilesh Avila Visit Number: [id number] Discharge Date: 04/04/18 ATTENTION: The Clinical Documentation Specialists (CDI) and [facility] Coding Staff appreciate your assistance in clarifying documentation. Please respond to the clarification below the line at the bottom and electronically sign. The CDI & [facility] Coding staff will review the response and follow-up if needed. Please note: Queries are made part of the Legal Health Record. If you have any questions, please contact the author of this message via ITS. Yoan Miranda MD Atelectasis is documented in the 04/04 progress notes and both 04/04 CXRs. Patient history/risk factors: recurrent spontaneous pneumothorax Radiology: left basilar atelectasis Vital Signs: T-97.8, P-105, R-16, BP-114/72, O2 sats-97 Other Clinical Indicators: chest tube removed, small stable right apical pneumothorax ans some left basilar atelectasis. Treatment: IS, Oxygen: Medication: Nasal cannula @ 3L Please document confirmation of the diagnosis of atelectasis in your progress notes and/or discharge summary, along with its associated clinical indicators ( i.e., signs, symptoms, findings, treatments, monitoring). If this condition was ruled out or documented in error, please indicate in your progress notes and /or discharge summary. Please continue to document in your progress notes and discharge summary in order to capture severity of illness and risk of mortality. Include clinical findings that support your diagnosis. atelectasis-asymtomatic MTDD
== END 2018-04-04 16:30 | disposition home or self-care (01) | DRG 165 ==
LOC: EC 12:10 → 3NMEDONC 16:41 → 4SSUR 04-03 12:14
PROVIDERS: ADMIT Hospitalist; ATTEND Hospitalist
PROC: 0W9930Z Drainage of Right Pleural Cavity with Drainage Device, Percutaneous Approach (ICD-10-PCS; 2018-04-01)
PROC: 0B5N4ZZ Destruction of Right Pleura, Percutaneous Endoscopic Approach (ICD-10-PCS; 2018-04-03)
PROC: 0W9940Z Drainage of Right Pleural Cavity with Drainage Device, Percutaneous Endoscopic Approach (ICD-10-PCS; 2018-04-03)
PROC: 0BJ08ZZ Inspection of Tracheobronchial Tree, Via Natural or Artificial Opening Endoscopic (ICD-10-PCS; 2018-04-03)
PROC: 0BBK4ZZ Excision of Right Lung, Percutaneous Endoscopic Approach (ICD-10-PCS; principal; 2018-04-03 09:00)
DX: J93.11 Primary spontaneous pneumothorax (principal); J93.82 Other air leak; G89.29 Other chronic pain; M54.2 Cervicalgia; Q85.00 Neurofibromatosis, unspecified; F17.201 Nicotine dependence, unspecified, in remission; Z79.899 Other long term (current) drug therapy; Z86.011 Personal history of benign neoplasm of the brain; Z83.79 Family history of other diseases of the digestive system; Z80.0 Family history of malignant neoplasm of digestive organs
CPT/HCPCS: 32551; 36415; 71045; 71046; 80048; 80053; 85025; 86850; 86900; 86901; 88307; 93005; 94640; 96374; 96375; 99285

== ENCOUNTER → 2018-04-18 | Outpatient (CLI) | payer OTHER ==
--- NOTE | 2018-04-18 09:03 | XR ---
EXAMINATION TYPE: XR chest 2V DATE OF EXAM: 04/18/2018 COMPARISON: 04/04/2018 HISTORY: Postop TECHNIQUE: Frontal and lateral views of the chest are obtained. FINDINGS: There is no focal air space opacity. No evidence for pneumothorax. No pleural effusion. The cardiac silhouette size is within normal limits. The osseous structures are grossly intact. IMPRESSION: 1. No acute cardiopulmonary process.
== END | disposition home or self-care (01) ==
LOC: RADXRMAIN 08:30
PROVIDERS: ATTEND Nurse Practitioner Family
DX: Z48.813 Encounter for surgical aftercare following surgery on the respiratory system (principal)
CPT/HCPCS: 71046

== ENCOUNTER 2019-06-11 10:24 | Day surgery (SDC) | payer OTHER ==
[2019-06-09 14:26] VITALS: BMI 26.7
[~2019-06-11 10:24] MED LIST: LACTATED RINGERS 1,000 ML IV SCH; LIDOCAINE 1% (10MG/ML) FOR IV START INTRADERMA PRN
[2019-06-11 10:53] VITALS: RESP 16; TEMP 98.2
[2019-06-11] MEDS ORDERED: PROPOFOL 10 MG/ML 20 ML VIAL IV ONE (11:43)
[2019-06-11] MEDS ORDERED: LIDOCAINE 1% INJ 10MG/ML (20 ML MDV) ONE (11:43)
--- NOTE | 2019-06-11 12:23 | P.PCN ---
Date of Procedure: 06/11/19 Description of Procedure: BRIEF HISTORY: Patient is a 38-year-old male who presents for outpatient colonoscopy for evaluation of a family history of colon cancer. Reports colon cancer in his mother in her 50s. Denies any change in bowel habits, blood per rectum or abdominal pain. PROCEDURE PERFORMED: Colonoscopy with polypectomy. PREOPERATIVE DIAGNOSIS: Family history of colon cancer, no prior colonoscopy. ESTIMATED BLOOD LOSS: Minimal. IV sedation per Anesthesia. PROCEDURE: After informed consent was obtained, the patient, was brought into the endoscopy unit. IV sedation was administered by Anesthesia under continuous monitoring. Digital rectal examination was normal. Initially the Olympus CF-190 flexible video colonoscope was then inserted in the rectum, gradually advanced into the cecum without any difficulty. Careful examination was performed as the scope was gradually being withdrawn. Ileocecal valve and the appendiceal orifice were visualized and appeared normal. Diminutive 3 mm ileocecal valve polyp removed with cold snare polypectomy. Prep was excellent. Mucosa of the cecum, ascending colon, transverse colon, descending colon, sigmoid colon, and rectum appeared normal. 3 mm rectal polyp removed with cold snare polypectomy. Retroflexion was performed in the rectum and no lesions were seen, low-grade internal hemorrhoids noted . The patient tolerated the procedure well. IMPRESSION: 2 small polyps removed from the IC valve and rectum with cold snare. Low-grade internal hemorrhoids. RECOMMENDATIONS: Findings of this examination were discussed with the patient and his [id number]. Okay to resume diet. Okay to resume medications. Await pathology from polypectomies. Would recommend repeat colonoscopy in 5 years for family history of colon cancer and personal history of colon polyps..
[2019-06-11 13:05] VITALS: BP 115/72; PULSE 81
== END 2019-06-11 13:06 | disposition home or self-care (01) ==
LOC: ORWHC2ENDO 10:24
PROVIDERS: ATTEND Internal Medicine
DX: Z12.11 Encounter for screening for malignant neoplasm of colon (principal); K63.5 Polyp of colon; D12.8 Benign neoplasm of rectum; K64.8 Other hemorrhoids; Z80.0 Family history of malignant neoplasm of digestive organs; Z87.891 Personal history of nicotine dependence; Z79.899 Other long term (current) drug therapy; Z79.52 Long term (current) use of systemic steroids; Z98.890 Other specified postprocedural states; Z87.09 Personal history of other diseases of the respiratory system; Z97.2 Presence of dental prosthetic device (complete) (partial)
CPT/HCPCS: 88305; 45385; J2001; J2704; 45380

== ENCOUNTER → 2019-07-23 | Day surgery (SDC) | payer OTHER ==
[~2019-07-23] MED LIST changes: -LACTATED RINGERS 1,000 ML IV SCH; -LIDOCAINE 1% (10MG/ML) FOR IV START INTRADERMA PRN; +SODIUM CHLORIDE 0.9% 500 ML 500 ML in EMPTY BAG 1 BAG IV PRN
[2019-07-23 11:50] VITALS: BP 127/77; PULSE 71; TEMP 97.6
[2019-07-23 11:54] VITALS: RESP 20
--- NOTE | 2019-07-23 13:31 | XR ---
EXAMINATION TYPE: XR chest 1V portable DATE OF EXAM: 07/23/2019 COMPARISON: 07/23/2019 HISTORY: Status post thoracostomy tube. Follow-up for pneumothorax. TECHNIQUE: Single frontal view of the chest is obtained. FINDINGS: Right-sided thoracic vent is again visualized. Curvilinear density overlies the right meliza thorax however lung markings are seen past this. This is similar to the prior exam. Right-sided thora costomy tube is similar in position to the prior. Lungs are well aerated. Cardia mediastinal silhouet te is stable. No acute osseous pathology. IMPRESSION: Curvilinear density overlies the right hemithorax however lung markings are seen past th is. Inspiratory and expiratory images. Confirm partial (anteroposterior pneumothorax overlying aerate d lung tissue.
--- NOTE | 2019-07-23 13:33 | XR ---
EXAMINATION TYPE: XR chest 1V portable DATE OF EXAM: 07/23/2019 COMPARISON: 07/23/2019 HISTORY: Status post thoracostomy tube. Follow-up for pneumothorax. TECHNIQUE: Single frontal view of the chest is obtained. FINDINGS: Again there is a right-sided thoracostomy tube. Redemonstration of a curvilinear density o verlying the right hemithorax although lung markings are seen past this. This is similar to the prior exam. Lungs are well aerated. Cardiomediastinal silhouette is stable. No acute osseous pathology. IMPRESSION: Probable right sided pneumothorax unchanged from the prior. Inspiratory and expiratory i mages could confirm partial (anterior or posterior) pneumothorax overlying aerated lung tissue.
--- NOTE | 2019-07-23 19:38 | P.PCN ---
Date of Procedure: 07/23/19 Preoperative Diagnosis: Right-sided pneumothorax Postoperative Diagnosis: Right-sided pneumothorax, recurrent Procedure(s) Performed: Insertion of a Thoravent Anesthesia: local Surgeon: Alicia Calhoun Estimated Blood Loss (ml): 0 Pathology: other Condition: stable Operative Findings: Operative Findings: The procedure was done in outpatient [facility].. The patient was placed in a supine body position with abdomen the bed elevated at around 30. The skin over the right anterior chest area was cleaned using ChloraPrep. Following that, the second intercostal space to the right of the sternum was identified and was infused with 1% lidocaine. A horizontal incision was done using a scalpel. After that, a Thoravent was inserted over the trocar into the right hemithorax and insertion with successful. The trocar was removed. There was adequate at a time. This was a 13-Monegasque Thoravent catheter. The catheter was secured in place. Appropriate dressing was applied. The adapter was attached to the Thoravent. The adapter was connected to the Pleur-evac. There was adequate air leak. Chest x-ray showed significant improvement in right-sided pneumothorax with some residual apical pneumothorax the present. No bedside complications. No bleeding.
== END | disposition home or self-care (01) ==
LOC: PROCWHC3 10:53
PROVIDERS: ATTEND Internal Medicine Critical Care Medicine
DX: J93.9 Pneumothorax, unspecified (principal); Q85.00 Neurofibromatosis, unspecified; E55.9 Vitamin D deficiency, unspecified; M47.22 Other spondylosis with radiculopathy, cervical region; Z80.0 Family history of malignant neoplasm of digestive organs; Z83.79 Family history of other diseases of the digestive system; Z87.891 Personal history of nicotine dependence; Z98.890 Other specified postprocedural states
CPT/HCPCS: 71045; 99215

== ENCOUNTER → 2019-07-27 | Outpatient (CLI) | payer OTHER ==
--- NOTE | 2019-07-27 14:36 | CT ---
EXAMINATION TYPE: CT chest w con DATE OF EXAM: 07/27/2019 COMPARISON: 10/24/2017 HISTORY: 38-year-old male Pneumothorax TECHNIQUE: Contiguous axial scanning of the chest after the administration of 100 mL of Isovue 300. Coronal/sagittal reconstructions performed. CT DLP: 344.1mGycm. Automatic exposure control utilized for a dose reduction. FINDINGS: Heart normal size without pericardial effusion. Aorta normal caliber with bovine configuration to the aortic arch. There seems to be diminutive C1 ribs. Thoravent is in place along the medial right upper lobe. Some a djacent surgical material suggests prior wedge resection. There is trace pneumothorax well below 5% nondependently located along the anterior right base. No consolidation or pleural effusion. Visualized upper abdomen shows no gross abnormality. Bones: No osseous destructive process. IMPRESSION: 1. Prevent catheter in place at the right apex. Some adjacent surgical material suggesting prior wedg e resection at the right apex. 2. A trace pneumothorax remains, well below 5%, nondependently located along the anterior right base. 3. Otherwise, no acute pulmonary process.
== END | disposition home or self-care (01) ==
LOC: RADCTMAIN 13:33
PROVIDERS: ATTEND Internal Medicine Critical Care Medicine
DX: J93.9 Pneumothorax, unspecified (principal); Z95.828 Presence of other vascular implants and grafts
CPT/HCPCS: 71260; Q9967

== ENCOUNTER 2019-07-28 | Emergency (ER) | payer OTHER | END 2019-07-28 23:17 | disposition home or self-care (01) | CPT/HCPCS: 99285; 96374; 96372; 36415; 93005; 80053; 83735; 85025; 85610; 85730; 71046; J2270 ==

== ENCOUNTER → 2020-01-27 | Outpatient (CLI) | payer OTHER | END | disposition home or self-care (01) | LOC: RADCTMAIN 16:51 | PROVIDERS: ATTEND Family Medicine | DX: Z53.9 Procedure and treatment not carried out, unspecified reason (principal) ==

== ENCOUNTER 2020-02-29 09:38 | Emergency (ER) | payer OTHER ==
[2020-02-29] MEDS ORDERED: ACETAMINOPHEN TAB 500 MG TAB PO STA (10:13)
--- NOTE | 2020-02-29 11:02 | XR ---
EXAMINATION TYPE: XR chest 1V portable DATE OF EXAM: 02/29/2020 Comparison: 07/29/2019 Clinical History: 39-year-old male with cough, possible covid Findings: Heart normal size. Aorta and pulmonary vasculature within normal limits. AP peripheral lung densities likely related to portable technique and overlying soft tissue. Otherwise, no consolidation or pleur al effusion. Impression: Hazy peripheral density, especially on the right probably relating to AP portable technique and overl ely soft tissue. Given the clinical concern, consider a high-quality PA view of the chest to reasses s this area and exclude infiltrates.
--- NOTE | 2020-02-29 11:12 | ED ---
General Adult HPI - General Chief complaint: Upper Respiratory Infection Stated complaint: poss COVID exposure, headache Time Seen by Provider: 02/29/20 09:57 Source: patient, RN notes reviewed Mode of arrival: ambulatory Limitations: no limitations - History of Present Illness Initial comments: 39-year-old male presents to the emergency room for a chief complaint of body aches. Patient reports that this morning he woke up and had body aches and felt chilled. He has a slight dry cough. He has a slight headache. Patient denies any neck stiffness. Patient was exposed to covid 4 days ago by his coworker. Patient has not had a test for covid himself. Patient denies shortness of breath. Denies chest pain. Patient has no other complaints at this time including shortness of breath, chest pain, abdominal pain, nausea or vomiting, headache, or visual changes. - Related Data Home Medications Medication Instructions Recorded Confirmed Acetaminophen [Tylenol 8 Hour] 650 mg PO Q8H PRN 07/28/19 07/28/19 Previous Rx's Medication Instructions Recorded Azithromycin [Zithromax Z-pack (6 250 mg PO DIRECTED #6 tab 02/29/20 tabs)] Allergies Allergy/AdvReac Type Severity Reaction Status Date / Time No Known Allergies Allergy Verified 02/29/20 09:47 Review of Systems ROS Statement: Those systems with pertinent positive or pertinent negative responses have been documented in the HPI. ROS Other: All systems not noted in ROS Statement are negative. Past Medical History Past Medical History: Pneumonia Additional Past Medical History / Comment(s): Neurofibromatosis, chronic neck pain, previous history of a right-sided pneumothorax back in September 2017 and March 2018 treated with a Thoravent and in March 2018 underwent a right VATS with apical wedge resection and mechanical pleurodesis , HEMORRHOIDS History of Any Multi-Drug Resistant Organisms: None Reported Past Surgical History: Orthopedic Surgery Additional Past Surgical History / Comment(s): 10/15/17 Thoravent placed, lt foot/leg surgery r/t abnormality. 04/01/2018 right-sided thoravent placed. Right video assisted thoracoscopic wedge apical resection of the right lung with mechanical pleurodesis on 04/03/2018. Past Anesthesia/Blood Transfusion Reactions: No Reported Reaction Past Psychological History: No Psychological Hx Reported Smoking Status: Former smoker Past Alcohol Use History: None Reported Past Drug Use History: None Reported - Past Family History Father Family Medical History: GI Bleed Additional Family Medical History / Comment(s): Father had stomach bleeding. He is but pt does not know cause of . Mother Family Medical History: Cancer Additional Family Medical History / Comment(s): Mother had stomach cancer and is . General Exam Limitations: no limitations General appearance: alert, in no apparent distress Head exam: Present: atraumatic, normocephalic, normal inspection Eye exam: Present: normal appearance, PERRL, EOMI. Absent: scleral icterus, conjunctival injection ENT exam: Present: normal exam, mucous membranes moist, normal external ear exam Neck exam: Present: normal inspection. Absent: tenderness, meningismus, lymphadenopathy Respiratory exam: Present: normal lung sounds bilaterally. Absent: respiratory distress, wheezes, rales, rhonchi, stridor Cardiovascular Exam: Present: regular rate, normal rhythm, normal heart sounds. Absent: systolic murmur, diastolic murmur, rubs, gallop, clicks GI/Abdominal exam: Present: soft, normal bowel sounds. Absent: distended, tenderness, guarding, rebound, rigid Course Vital Signs 02/29/20 02/29/20 09:44 10:14 Temperature 97 F L 101.9 F H Pulse Rate 112 H Respiratory 18 Rate Blood Pressure 126/75 O2 Sat by Pulse 97 Oximetry Medical Decision Making - Medical Decision Making Patient is a well-appearing 39-year-old male. Patient is found to have a fever of 101.9 with reflexive tachycardia of 112. Patient has a positive exposure to coronavirus. Therefore patient was tested for Covid, presumed to be positive given fever. Chest x-ray shows a hazy peripheral density especially on the right probably relating to a few portable technique and overlying soft tissue. At this time patient will be started on azithromycin for a possible infiltrate given slight cough and fever. I did recommend that he follow-up with his doctor and practice quarantine measures. he'll return here for any worsening symptoms. I did discuss to monitor for shortness of breath closely. I discussed this case with attending Dr. Huber who agrees with this assessment and treatment plan. Disposition Clinical Impression: Cough Narrative: possible pneumonia Disposition: HOME SELF-CARE Condition: Good Instructions (If sedation given, give patient instructions): Acute Cough (ED) Additional Instructions: Please take Motrin and Tylenol for fever. Take antibiotic as directed. Follow- up with your doctor and practice quarantine measures. Return to the emergency room for any worsening symptoms or shortness of breath. Prescriptions: Azithromycin [Zithromax Z-pack (6 tabs)] 250 mg PO DIRECTED #6 tab Is patient prescribed a controlled substance at d/c from ED?: No Referrals: Jud Reddy MD [Primary Care Provider] - 1-2 days Time of Disposition: 11:08
[2020-02-29] MEDS ORDERED: AZITHROMYCIN 500 MG TAB PO STA (11:15)
[2020-02-29 11:29] VITALS: BP 121/75; PULSE 99; RESP 17; TEMP 98.7
== END 2020-02-29 11:43 | disposition home or self-care (01) ==
LOC: EC 09:38
DX: U07.1 COVID-19 (principal); Z87.891 Personal history of nicotine dependence
CPT/HCPCS: 71045; 99283; U0003

== ENCOUNTER 2020-03-07 07:34 | Emergency (ER) | payer OTHER ==
[2020-03-07 07:44] VITALS: RESP 18; TEMP 99.9
[2020-03-07] MEDS ORDERED: SODIUM CHLORIDE 0.9% 1,000 ML IV STA (08:04)
--- NOTE | 2020-03-07 08:09 | ED ---
General Adult HPI - General Chief complaint: Shortness of Breath Stated complaint: SOB Time Seen by Provider: 03/07/20 07:50 Source: patient, EMS, RN notes reviewed, old records reviewed Mode of arrival: EMS Limitations: no limitations - History of Present Illness Initial comments: 39-year-old male presenting for evaluation of cough, dyspnea, vomiting. Patient was diagnosed with coronavirus one week ago. He states he has had a dry cough and mild dyspnea. He also has had vomiting over the past several days. He does report fever. French is his second language but he is able to communicate inaccurate history. He also reports poor appetite. - Related Data Home Medications Medication Instructions Recorded Confirmed Ascorbic Acid [Vitamin C] 500 mg PO DAILY 03/07/20 03/07/20 Cholecalciferol [Vitamin D3 (25 1,000 unit PO DAILY 03/07/20 03/07/20 Mcg = 1000 Iu)] Zinc 50 mg PO DAILY 03/07/20 03/07/20 Allergies Allergy/AdvReac Type Severity Reaction Status Date / Time No Known Allergies Allergy Verified 03/07/20 08:58 Review of Systems ROS Statement: Those systems with pertinent positive or pertinent negative responses have been documented in the HPI. ROS Other: All systems not noted in ROS Statement are negative. Past Medical History Past Medical History: Pneumonia Additional Past Medical History / Comment(s): Neurofibromatosis, chronic neck pain, previous history of a right-sided pneumothorax back in September 2017 and Novem 2017 treated with a Thoravent and in March 2018 underwent a right VATS with apical wedge resection and mechanical pleurodesis , HEMORRHOIDS History of Any Multi-Drug Resistant Organisms: None Reported Past Surgical History: Orthopedic Surgery Additional Past Surgical History / Comment(s): 10/15/17 Thoravent placed, lt foot/leg surgery r/t abnormality. 04/01/2018 right-sided thoravent placed. Right video assisted thoracoscopic wedge apical resection of the right lung with mechanical pleurodesis on 04/03/2018. Past Anesthesia/Blood Transfusion Reactions: No Reported Reaction Past Psychological History: No Psychological Hx Reported Smoking Status: Former smoker Past Alcohol Use History: None Reported Past Drug Use History: None Reported - Past Family History Father Family Medical History: GI Bleed Additional Family Medical History / Comment(s): Father had stomach bleeding. He is but pt does not know cause of . Mother Family Medical History: Cancer Additional Family Medical History / Comment(s): Mother had stomach cancer and is . General Exam Limitations: no limitations General appearance: alert, in no apparent distress Head exam: Present: atraumatic, normocephalic Eye exam: Present: normal appearance, PERRL ENT exam: Present: mucous membranes dry Neck exam: Present: normal inspection. Absent: tenderness, meningismus Respiratory exam: Present: normal lung sounds bilaterally. Absent: respiratory distress, wheezes, rales, rhonchi Cardiovascular Exam: Present: regular rate, normal rhythm GI/Abdominal exam: Present: soft. Absent: distended, tenderness, guarding Extremities exam: Present: normal inspection, normal capillary refill Neurological exam: Present: alert. Absent: motor sensory deficit Psychiatric exam: Present: normal affect, normal mood Skin exam: Present: warm, dry, intact. Absent: cyanosis, diaphoretic Course Vital Signs 03/07/20 03/07/20 07:37 07:58 Temperature 99.9 F H Pulse Rate 97 Respiratory 18 18 Rate Blood Pressure 129/84 O2 Sat by Pulse 97 Oximetry EKG Findings - EKG Comments: EKG Findings:: EKG: Normal sinus rhythm, rate of 95, MN interval 152, QRS duration 106, QTC 444, no ST segment elevation. Medical Decision Making - Medical Decision Making 39-year-old male with known coronavirus presenting with cough and mild dyspnea. Patient is comfortable on room air with normal oxygenation, no respiratory distress, good air entry. Chest x-ray showed pattern consistent with bronchitis, no focal pneumonia. He has CBC showed leukopenia and some new thrombocytopenia with platelets of 89 which is low and new. CT angiography is performed which is negative for PE, does show ground glass opacity consistent with covid 19. Patient remains comfortable on room air. He's given strict return parameters. He will quarantine for an additional 14 days. - Lab Data Result diagrams: 03/07/20 08:19 03/07/20 08:19 Lab Results 03/07/20 03/07/20 03/07/20 Range/Units 08:19 08:19 08:19 WBC 3.5 L (3.8-10.6) k/uL RBC 5.87 (4.30-5.90) m/uL Hgb 16.8 (13.0-17.5) gm/dL Hct 48.5 (39.0-53.0) % MCV 82.6 (80.0-100.0) fL MCH 28.6 (25.0-35.0) pg MCHC 34.7 (31.0-37.0) g/dL RDW 13.0 (11.5-15.5) % Plt Count 89 L D (150-450) k/uL Neutrophils % 72 % Lymphocytes % 17 % Monocytes % 7 % Eosinophils % 0 % Basophils % 0 % Neutrophils # 2.5 (1.3-7.7) k/uL Lymphocytes # 0.6 L (1.0-4.8) k/uL Monocytes # 0.3 (0-1.0) k/uL Eosinophils # 0.0 (0-0.7) k/uL Basophils # 0.0 (0-0.2) k/uL Manual Slide Review Performed RBC Morphology Normal PT 10.7 (9.0-12.0) sec INR 1.0 (<1.2) APTT 25.7 (22.0-30.0) sec Sodium 137 (137-145) mmol/L Potassium 3.6 (3.5-5.1) mmol/L Chloride 103 (98-107) mmol/L Carbon Dioxide 24 (22-30) mmol/L Anion Gap 10 mmol/L BUN 17 (9-20) mg/dL Creatinine 0.82 (0.66-1.25) mg/dL Est GFR (CKD-EPI)AfAm >90 (>60 ml/min/1.73 sqM) Est GFR (CKD-EPI)NonAf >90 (>60 ml/min/1.73 sqM) Glucose 108 H (74-99) mg/dL Plasma Lactic Acid Hay (0.7-2.0) mmol/L Calcium 8.7 (8.4-10.2) mg/dL Magnesium 1.9 (1.6-2.3) mg/dL Total Bilirubin 0.7 (0.2-1.3) mg/dL AST 34 (17-59) U/L ALT 31 (4-49) U/L Alkaline Phosphatase 48 (38-126) U/L Troponin I (0.000-0.034) ng/mL Total Protein 7.3 (6.3-8.2) g/dL Albumin 4.4 (3.5-5.0) g/dL 03/07/20 03/07/20 Range/Units 08:19 08:19 WBC (3.8-10.6) k/uL RBC (4.30-5.90) m/uL Hgb (13.0-17.5) gm/dL Hct (39.0-53.0) % MCV (80.0-100.0) fL MCH (25.0-35.0) pg MCHC (31.0-37.0) g/dL RDW (11.5-15.5) % Plt Count (150-450) k/uL Neutrophils % % Lymphocytes % % Monocytes % % Eosinophils % % Basophils % % Neutrophils # (1.3-7.7) k/uL Lymphocytes # (1.0-4.8) k/uL Monocytes # (0-1.0) k/uL Eosinophils # (0-0.7) k/uL Basophils # (0-0.2) k/uL Manual Slide Review RBC Morphology PT (9.0-12.0) sec INR (<1.2) APTT (22.0-30.0) sec Sodium (137-145) mmol/L Potassium (3.5-5.1) mmol/L Chloride (98-107) mmol/L Carbon Dioxide (22-30) mmol/L Anion Gap mmol/L BUN (9-20) mg/dL Creatinine (0.66-1.25) mg/dL Est GFR (CKD-EPI)AfAm (>60 ml/min/1.73 sqM) Est GFR (CKD-EPI)NonAf (>60 ml/min/1.73 sqM) Glucose (74-99) mg/dL Plasma Lactic Acid Hay 1.2 (0.7-2.0) mmol/L Calcium (8.4-10.2) mg/dL Magnesium (1.6-2.3) mg/dL Total Bilirubin (0.2-1.3) mg/dL AST (17-59) U/L ALT (4-49) U/L Alkaline Phosphatase (38-126) U/L Troponin I <0.012 (0.000-0.034) ng/mL Total Protein (6.3-8.2) g/dL Albumin (3.5-5.0) g/dL Disposition Clinical Impression: COVID-19 Disposition: HOME SELF-CARE Condition: Fair Instructions (If sedation given, give patient instructions): Viral Pneumonia (ED), Viral Syndrome (ED) Additional Instructions: Please quarantine yourself for 14 days. Please return with any worsening symptoms or breathing issues. Is patient prescribed a controlled substance at d/c from ED?: No Referrals: Jud Reddy MD [Primary Care Provider] - 1-2 days Time of Disposition: 10:42
[2020-03-07 08:36] LABS: Basophils % (A) 0 %; Eosinophils % (A) 0 %; HCT 48.5 % (39.0-53.0); HGB 16.8 gm/dL (13.0-17.5); Lymphocytes # (A) 0.6 k/uL (1.0-4.8); Lymphocytes % (A) 17 %; MCH 28.6 pg (25.0-35.0); MCHC 34.7 g/dL (31.0-37.0); MCV 82.6 fL (80.0-100.0); Mean Platelet Volume 10.2; Monocytes # (A) 0.3 k/uL (0-1.0); Monocytes % (A) 7 %; Neutrophils # (A) 2.5 k/uL (1.3-7.7); Neutrophils % (A) 72 %; RBC 5.87 m/uL (4.30-5.90); WBC 3.5 k/uL (3.8-10.6)
[2020-03-07 08:39] LABS: ALT 31 U/L (4-49); AST 34 U/L (17-59); African American GFR (CKD) >90 (>60 ml/min/1.73 sqM); Albumin 4.4 g/dL (3.5-5.0); Alkaline Phosphatase 48 U/L (38-126); Anion Gap 10 mmol/L; Blood Urea Nitrogen 17 mg/dL (9-20); Calcium 8.7 mg/dL (8.4-10.2); Carbon Dioxide 24 mmol/L (22-30); Chloride 103 mmol/L (98-107); Glucose 108 mg/dL (74-99); Magnesium 1.9 mg/dL (1.6-2.3); Non-African American GFR(CKD) >90 (>60 ml/min/1.73 sqM); Partial Thromboplastin Time 25.7 sec (22.0-30.0); Potassium 3.6 mmol/L (3.5-5.1); Prothrombin Time 10.7 sec (9.0-12.0); Sodium 137 mmol/L (137-145); Total Bilirubin 0.7 mg/dL (0.2-1.3); Total Protein 7.3 g/dL (6.3-8.2)
--- NOTE | 2020-03-07 08:41 | XR ---
EXAMINATION TYPE: XR chest 1V portable DATE OF EXAM: 03/07/2020 Comparison: 02/29/2020 Clinical History: 39-year-old male with possible covid Findings: Heart normal size. Aorta and pulmonary vasculature within normal limits. Mild interstitial prominence . Hazy peripheral lung densities appear to relate to overlying soft tissue. No shagufta consolidation or pleural effusion. Impression: Mild interstitial prominence could reflect bronchitis or asthma. No focal infiltrate at this time.
[2020-03-07 08:51] LABS: Platelet Count 89 k/uL (150-450)
[2020-03-07] MEDS ORDERED: ACETAMINOPHEN TAB 500 MG TAB PO STA (09:15)
--- NOTE | 2020-03-07 10:30 | CT ---
EXAMINATION TYPE: CT angio chest DATE OF EXAM: 03/07/2020 10:09 AM COMPARISON: Chest radiograph 03/07/2020. CT chest 07/27/2019. HISTORY: shortness of breath. Known Covid [address] DLP: 404.7 mGycm Automated exposure control for dose reduction was used. CONTRAST: CTA scan of the thorax is performed with IV Contrast, patient injected with 100 mL of Isovue 370, pul monary embolism protocol. MIP images are created and reviewed. FINDINGS: LUNGS: There are numerous newly demonstrated groundglass opacities of the bilateral lungs. New atelec tasis at the left lung base dependently. Redemonstrated mild bronchiectasis and emphysematous change. Redemonstrated scarring at the right lung apex. There is no pleural effusion or pneumothorax seen. The tracheobronchial tree is patent. MEDIASTINUM: There is satisfactory enhancement of the pulmonary artery and its branches, there is no CT evidence for pulmonary embolism. There are no greater than 1 cm hilar or mediastinal lymph nodes. Cardiac size normal. No pericardial effusion is seen. No thoracic aortic aneurysm. Bovine configur ation of the aortic arch. OTHER: No additional significant abnormality is seen. IMPRESSION: 1. Scattered groundglass opacities of the bilateral lungs, consistent with Covid 19 viral infection. 2. No pulmonary embolism. 3. No thoracic aortic aneurysm. Dr. Galilea Hearn discussed findings with Dr. Joshua Perea via the phone on 03/07/2020, at 10 :26 AM, and results were acknowledged.
[2020-03-07 11:28] VITALS: BP 103/70; PULSE 89
== END 2020-03-07 11:48 | disposition home or self-care (01) ==
LOC: EC 07:34
DX: U07.1 COVID-19 (principal); D72.819 Decreased white blood cell count, unspecified; D69.6 Thrombocytopenia, unspecified; Z87.891 Personal history of nicotine dependence
CPT/HCPCS: 36415; 93005; 80053; 83605; 83735; 84484; 85025; 85610; 85730; 71045; 71275; 99285; 96360; Q9967

== ENCOUNTER → 2020-08-18 | Outpatient (CLI) | payer OTHER ==
--- NOTE | 2020-08-18 10:32 | XR ---
EXAMINATION TYPE: XR tibia fibula RT DATE OF EXAM: 08/18/2020 COMPARISON: None HISTORY: Leg pain fatigue TECHNIQUE: 2 view right tibia and fibula FINDINGS: Knee and ankle joint spaces appear preserved. No acute fracture or dislocation is evident. The soft tissues appear normal. IMPRESSION: 1. Normal right tibia and fibula
[2020-08-18 10:47] LABS: Basophils % (A) 1 %; Eosinophils # (A) 0.3 k/uL (0-0.7); Eosinophils % (A) 4 %; HCT 46.4 % (39.0-53.0); HGB 16.1 gm/dL (13.0-17.5); Lymphocytes # (A) 1.4 k/uL (1.0-4.8); Lymphocytes % (A) 26 %; MCHC 34.7 g/dL (31.0-37.0); MCV 83.6 fL (80.0-100.0); Mean Platelet Volume 7.3; Monocytes # (A) 0.4 k/uL (0-1.0); Monocytes % (A) 7 %; Neutrophils # (A) 3.4 k/uL (1.3-7.7); Neutrophils % (A) 61 %; Platelet Count 170 k/uL (150-450); RBC 5.55 m/uL (4.30-5.90); RDW 13.2 % (11.5-15.5); WBC 5.6 k/uL (3.8-10.6)
[2020-08-18 11:18] LABS: ALT 42 U/L (4-49); AST 29 U/L (17-59); African American GFR (CKD) >90 (>60 ml/min/1.73 sqM); Albumin 4.7 g/dL (3.5-5.0); Alkaline Phosphatase 53 U/L (38-126); Anion Gap 7 mmol/L; Blood Urea Nitrogen 20 mg/dL (9-20); Calcium 9.8 mg/dL (8.4-10.2); Carbon Dioxide 29 mmol/L (22-30); Chloride 106 mmol/L (98-107); Cholesterol 191 mg/dL (<200); Glucose 100 mg/dL (74-99); HDL Cholesterol 44 mg/dL (40-60); LDL Cholesterol,Calculated 130 mg/dL (0-99); Non-African American GFR(CKD) >90 (>60 ml/min/1.73 sqM); Potassium 4.5 mmol/L (3.5-5.1); Sodium 142 mmol/L (137-145); Total Bilirubin 0.6 mg/dL (0.2-1.3); Total Protein 7.7 g/dL (6.3-8.2); Triglycerides 86 mg/dL (<150)
[2020-08-18 20:53] LABS: Hemoglobin A1C 5.2 % (4.0-6.0)
== END | disposition home or self-care (01) ==
LOC: RADXRMAIN 10:02
PROVIDERS: ATTEND Family Medicine
DX: Z00.00 Encounter for general adult medical examination without abnormal findings (principal); M79.604 Pain in right leg
CPT/HCPCS: 80053; 80061; 83036; 84443; 85025; 85379

== ENCOUNTER → 2021-03-22 | Outpatient (CLI) | payer OTHER ==
--- NOTE | 2021-03-22 11:12 | XR ---
Right knee HISTORY: Pain for one month 5 views of the right knee correlated to right leg dated 08/18/2020 Bone mineralization, joint spaces and alignment are maintained. No fracture or dislocation. No eviden t joint effusion. IMPRESSION: Normal right knee
== END | disposition home or self-care (01) ==
LOC: RADXRMAIN 10:37
PROVIDERS: ATTEND Family Medicine
DX: M25.561 Pain in right knee (principal)
CPT/HCPCS: 85379

== ENCOUNTER → 2024-06-10 | Outpatient (CLI) | payer OTHER ==
--- NOTE | 2024-06-10 15:34 | US ---
EXAMINATION TYPE: US thyroid st tissue head/neck DATE OF EXAM: 06/10/2024 COMPARISON: NONE CLINICAL INDICATION: Male, 43 years old with history of R22.0 LOCALIZED SWELLING, MASS AND LUMP, HEAD ; Palpable right area lateral to right eye. Patient states it has been there for a long time, but in the morning can make eye blurry. TECHNIQUE: Sonographic images taken. FINDINGS: Patients area of concern scanned. Compressible lesion seen superficially = 2.3 x 3.2 x 0. 7 cm, nonvascular. A subcutaneous oval-shaped heterogeneous avascular area. IMPRESSION: The differential includes nonsimple fluid collection such as focal hematoma. Solid mass is not excluded. If lesion becomes painful and/or enlarges further investigation with contrast-enhanc ed CT would be advised. [facility], , 06/10/2024 3:32 PM
== END | disposition home or self-care (01) ==
LOC: RADUSWWP 14:52
PROVIDERS: ATTEND Family Medicine
DX: R22.0 Localized swelling, mass and lump, head (principal)
CPT/HCPCS: 76536

== ENCOUNTER 2024-07-17 10:49 | Day surgery (SDC) | payer OTHER ==
[2024-07-16 10:19] VITALS: BMI 28.8
[~2024-07-17 10:49] MED LIST changes: +LACTATED RINGERS 1,000 ML IV SCH; -SODIUM CHLORIDE 0.9% 500 ML 500 ML in EMPTY BAG 1 BAG IV PRN
[2024-07-17 12:49] VITALS: TEMP 98
[2024-07-17] MEDS ORDERED: PROPOFOL 10 MG/ML 20 ML VIAL IV ONE (13:06)
[2024-07-17] MEDS: LACTATED RINGERS 1,000 ML IV ONE (13:06)
--- NOTE | 2024-07-17 13:19 | P.PCN ---
Date of Procedure: 07/17/24 Procedure(s) Performed: BRIEF HISTORY: Patient is a 43-year-old pleasant male scheduled for an elective colonoscopy as a part of screening for colon cancer. Her mother was diagnosed with colon cancer at age 60. PROCEDURE PERFORMED: Colonoscopy snare polypectomy. PREOPERATIVE DIAGNOSIS: Screening for colon cancer family history of colon cancer. IV sedation per Anesthesia. PROCEDURE: After informed consent was obtained, the patient, was brought into the endoscopy unit. IV sedation was administered by Anesthesia under continuous monitoring. Digital rectal examination was normal. Initially the Olympus CF-160 flexible video colonoscope was then inserted in the rectum, gradually advanced into the cecum without any difficulty. Careful examination was performed as the scope was gradually being withdrawn. Ileocecal valve and the appendiceal orifice were visualized and appeared normal. Prep was excellent. Mucosa of the cecum, ascending colon, transverse colon, descending colon, sigmoid colon, and rectum appeared normal. In the mid rectum there was a 1 cm flat polyp that was removed by snare polypectomy. Retroflexion was performed in the rectum and no lesions were seen. The patient tolerated the procedure well. IMPRESSION: 1 cm flat mid rectal polyp status post snare polypectomy. Rest of the colon appeared normal RECOMMENDATIONS: Findings of this examination were discussed with the patient as well as his family. He was advised to follow-up with the biopsy results. Recommended repeat colonoscopy in 3 years if the biopsy reveals adenoma otherwise in 5 years because of the family history of colon cancer
[2024-07-17 13:39] VITALS: BP 117/70; PULSE 89; RESP 17
== END 2024-07-17 13:50 | disposition home or self-care (01) ==
LOC: ORWHC2ENDO 10:49
PROVIDERS: ATTEND Internal Medicine Gastroenterology
DX: Z12.11 Encounter for screening for malignant neoplasm of colon (principal); D17.79 Benign lipomatous neoplasm of other sites; Q85.00 Neurofibromatosis, unspecified; Z87.898 Personal history of other specified conditions
CPT/HCPCS: 45385; J2704; 88305